=== PATIENT | female | born 1960 | race Caucasian/White ===

== ENCOUNTER 2017-01-29 12:14 | Emergency (ER) | payer BC ==
[~2017-01-29] VITALS: Ht 160 cm; Wt 59.0 kg
[2017-01-29 12:30] VITALS: TEMP 36.6; Ht 160 cm; Wt 59.0 kg
[2017-01-29] MEDS ORDERED: LISI-461 PO (12:47)
[2017-01-29] MEDS ORDERED: SODIUM CHLORIDE 0.9% 1000ML 500 ML IV ONE (13:01)
[2017-01-29] MEDS ORDERED: ONDANSETRON INJ 2 MG/ML 2 ML VIAL IV STA (13:12)
[2017-01-29] MEDS ORDERED: KETOROLAC TROMETHAMINE 30 MG/ML VIAL IV STA (13:12)
[2017-01-29] MEDS ORDERED: MoRPHine SULFATE 10 MG/ML CARP/VIAL IV STA (13:12)
[2017-01-29] MEDS ORDERED: SODIUM CHLORIDE 0.9% 1000ML 2,000 ML IV STA (13:15)
[2017-01-29 13:22] LABS: HEMATOCRIT 40.8 % (37-47); MEAN CELL VOLUME 77.7 fL (80-100); MEAN CORPUSCULAR HEMOGLOBIN 26.3 pg (25-34); MEAN CORPUSCULAR HGB CONC 33.8 g/dl (32-36); MEAN PLATELET VOLUME 9.4 fL (7.4-10.4); PLATELET COUNT 224 K/uL (130-400); RED BLOOD COUNT 5.25 M/uL (4.2-5.4); WHITE BLOOD COUNT 8.84 K/uL (4.8-10.8)
[2017-01-29 13:39] LABS: BUN/CREATININE RATIO 21.1 (10-20); CALCIUM 9.8 mg/dl (8.5-10.1); CREATININE 1.2 mg/dl (0.60-1.20); POTASSIUM 3.9 mmol/L (3.5-5.1)
--- NOTE | 2017-01-29 14:02 | DIAGNOSTIC IMAGING REPORT ---
ABDOMEN AND PELVIS CT WITHOUT CONTRAST CT DOSE: 672.52 mGycm HISTORY: Flank pain LEFT FLANK PAIN TECHNIQUE: Multiaxial CT images of the abdomen and pelvis were performed without the use of intravenous and oral contrast according to the standard department stone protocol. COMPARISON STUDY: None. FINDINGS: The lung bases are clear. The unenhanced liver, gallbladder, spleen, pancreas, and adrenal glands are unremarkable. Mild left renal hydronephrosis. 4 mm partially obstructing calculus mid left ureter. No additional renal calcifications. Bladder is midline. Multiple pelvic vascular calcifications. Multiple fluid-filled loops of bowel suggesting nonobstructive ileus. IMPRESSION: 4 mm partially obstructing calculus mid left ureter. 2. Mild left hydroureteronephrosis. 3. Mild reactive ileus. Electronically signed by: Bret Dias M.D. 01/29/2017 2:01 PM Dictated Date/Time: 01/29/2017 1:55 PM
[2017-01-29] MEDS ORDERED: TAMSULOSIN HCL 0.4 MG CAP PO ONE (15:15)
[2017-01-29 16:24] LABS: URINE APPEARANCE CLEAR (CLEAR); URINE BILIRUBIN NEG (NEG); URINE COLOR YELLOW; URINE EPITHELIAL CELL AUTO 0-5 /lpf (0-5); URINE NITRITE NEG (NEG); URINE SPECIFIC GRAVITY 1.006 (1.000-1.030); UROBILINOGEN NEG (NEG)
[2017-01-29 16:27] LABS: MANUAL MICROSCOPIC REQUIRED? NO; REVIEW REQ? NO
[2017-01-29] MEDS ORDERED: MoRPHine SULFATE 4 MG/ML 1 ML CARP\\VIAL IV STA (16:45)
[2017-01-29] MEDS ORDERED: ONDA4TAB10 SL (16:48)
[2017-01-29] MEDS ORDERED: HYDR-5688 PO (16:48)
[2017-01-29] MEDS ORDERED: TAMS0.4C38 PO (16:48)
--- NOTE | 2017-01-29 16:49 | EMERGENCY ROOM VISIT NOTE ---
ED Visit Note First contact with patient: 13:09 CHIEF COMPLAINT: Left flank pain 3 hours HISTORY OF PRESENT ILLNESS: Patient is a generally healthy 56-year-old white female who presents emergency department for evaluation of left lower quadrant pain radiating to the left low back with associated nausea and vomiting that began acutely around 3 hours ago. Patient states that she has been feeling well and was in her usual state of health prior to the onset of her symptoms about 3 hours ago. 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 She reports that she felt fine during work, came home this morning and ate breakfast. She states that around 10:30 (2 hours prior to arrival) she noticed a dull, aching pain in the left lower quadrant. She states that she thought it could be gas so she had a bowel movement which was normal and did not help to alleviate her pain. The pain steadily worsened and began to rapidly around to the left low back. She reports associated nausea and vomiting, she reports multiple episodes, since the pain began. She has urinated and denies any dysuria, frequency, urgency or hematuria. She is postmenopausal and status post tubal ligation. She has never had any abdominal surgeries. She denies a history of kidney stones. She rates her pain a 10/10 presently. REVIEW OF SYSTEMS: Review of systems as per HPI. All other systems reviewed were negative. 10 systems reviewed. PMH: Electronic medical records are reviewed and summarized as above/below. See Problem List. SOCIAL HISTORY: Patient lives at home. 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 She does not smoke. PHYSICAL EXAM: Vital Signs: Reviewed Nurse's notes. CONSTITUTIONAL: Patient is an uncomfortable, slightly tearful 56-year-old white female who was awake and alert and in obvious distress due to her stated complaint. EYES: Pupils equal, round, reactive to light and accommodation. EOMs intact without nystagmus. Sclera are anicteric. ENT: Tympanic membranes intact, with normal landmarks. External canals are clear. Oral and nasopharynx are clear. Mucous membranes are moist, no lesions , tongue and gums appear normal. CARDIOVASCULAR: Regular rate and rhythm, with normal S1 and S2, no murmur or gallop or rub is heard. No carotid bruits auscultated. No JVD. Peripheral pulses easily palpable. RESPIRATORY: Breath sounds equal and clear to auscultation without wheezes, rales, or rhonchi heard. Full and equal chest expansion without accessory muscle use or retractions. ABDOMEN: Bowel sounds are present. Abdomen is soft, nondistended, tender to palpation in the left midabdomen, no guarding, rebound or rigidity. INTEGUMENTARY: No lesions or rash, normal skin turgor. LYMPH: No lymphadenopathy. EMERGENCY DEPARTMENT COURSE: The patient was seen and evaluated as above. IV access was obtained and she was hydrated with normal saline solution. She was medicated with morphine 6 mg, Toradol 30 mg and Zofran 4 mg IV. CBC, BMP and urinalysis were ordered. Given the patient's abrupt onset of colicky left flank pain with associated nausea and vomiting, I did order CT scan of the abdomen and pelvis without contrast. She had a 4 mm partially obstructing calculus in the left mid ureter with resulting hydronephrosis. Patient's laboratory studies noted a normal white count. She is not anemic. Electrolytes are within normal limits. BUN and creatinine 25 and 1.2. Urinalysis noted hematuria only without any other indicators for infection. The patient was medicated with additional morphine 4 mg IV prior to discharge. She was also given Flomax 0.4 mg orally. She was issued a urine strainer. All laboratory and diagnostic imaging studies were reviewed with the patient. Supportive care measures were discussed. She reported good pain relief with the IV medications. She will be prescribed a short course of oral Flomax, and was given Zofran and [place] to use for pain and nausea. The patient rated her discomfort a 5/10 at discharge. Differential diagnoses entertained included UTI, pyelonephritis, renal colic, diverticulitis, bowel obstruction, perforation, abscess, ovarian cyst, ovarian torsion, ectopic , mass or malignancy, infectious versus inflammatory colitis, food borne illness, among others. ABDOMEN AND PELVIS CT WITHOUT CONTRAST CT DOSE: 672.52 mGycm HISTORY: Flank pain LEFT FLANK PAIN TECHNIQUE: Multiaxial CT images of the abdomen and pelvis were performed without the use of intravenous and oral contrast according to the standard department stone protocol. COMPARISON STUDY: None. FINDINGS: The lung bases are clear. The unenhanced liver, gallbladder, spleen, pancreas, and adrenal glands are unremarkable. Mild left renal hydronephrosis. 4 mm partially obstructing calculus mid left ureter. No additional renal calcifications. Bladder is midline. Multiple pelvic vascular calcifications. Multiple fluid-filled loops of bowel suggesting nonobstructive ileus. IMPRESSION: 4 mm partially obstructing calculus mid left ureter. 2. Mild left hydroureteronephrosis. 3. Mild reactive ileus. Problem List Medical Problems: (1) Hypertension Status: Chronic Surgical Problems: (1) Status post tubal ligation Status: Resolved Current/Historical Medications Scheduled Lisinopril (Lisinopril), 10 MG PO QAM Tamsulosin Hcl (Flomax), 0.4 MG PO DAILY Scheduled PRN Hydrocodone/Acetaminophen 5MG/325MG ([place] 5MG/325MG), 1-2 TABLETS PO Q4 PRN for Pain Ondasetron Odt (Zofran Odt), 4 MG SL Q6H PRN for Nausea or Vomiting Allergies Coded Allergies: No Known Allergies (Unverified , 01/29/17) Vital Signs Date Time Temp Pulse Resp B/P Pulse Ox O2 Delivery O2 Flow Rate FiO2 01/29/17 17:08 75 18 119/85 96 Room Air 01/29/17 16:05 84 16 138/79 94 Room Air 01/29/17 13:50 87 20 131/95 95 Room Air 01/29/17 12:30 36.6 84 20 152/105 97 Room Air Laboratory Results 01/29/17 13:13 01/29/17 13:13 Test 01/29/17 13:13 01/29/17 15:08 Red Blood Count 5.25 M/uL (4.2-5.4) Mean Corpuscular Volume 77.7 fL (80-100) Mean Corpuscular Hemoglobin 26.3 pg (25-34) Mean Corpuscular Hemoglobin Concent 33.8 g/dl (32-36) RDW Standard Deviation 37.3 fL (36.4-46.3) RDW Coefficient of Variation 13.3 % (11.5-14.5) Mean Platelet Volume 9.4 fL (7.4-10.4) Anion Gap 9.0 mmol/L (3-11) Est Creatinine Clear Calc Drug Dose 43.8 ml/min Estimated GFR () 58.9 Estimated GFR (Non- 50.8 BUN/Creatinine Ratio 21.1 (10-20) Calcium Level 9.8 mg/dl (8.5-10.1) Urine Color YELLOW Urine Appearance CLEAR (CLEAR) Urine pH 5.0 (4.5-7.5) Urine Specific [place] 1.006 (1.000-1.030) Urine Protein NEG (NEG) Urine Glucose (UA) NEG (NEG) Urine Ketones NEG (NEG) Urine Occult Blood 3+ (NEG) Urine Nitrite NEG (NEG) Urine Bilirubin NEG (NEG) Urine Urobilinogen NEG (NEG) Urine Leukocyte Esterase NEG (NEG) Urine WBC (Auto) 1-5 /hpf (0-5) Urine RBC (Auto) >30 /hpf (0-4) Urine Hyaline Casts (Auto) 0 /lpf (0-5) Urine Epithelial Cells (Auto) 0-5 /lpf (0-5) Urine Bacteria (Auto) NEG (NEG) Medications Administered Medications (Trade) Dose Ordered Sig/Keshawn Route Start Time Stop Time Status Last Admin Dose Admin Sodium Chloride (Nss 1000ml) 500 ml @ 999 mls/hr Q31M ONCE IV 01/29/17 13:01 01/29/17 13:31 DC 01/29/17 13:01 999 MLS/HR Morphine Sulfate (MoRPHine SULFATE INJ) 6 mg NOW STAT IV 01/29/17 13:12 01/29/17 13:14 DC 01/29/17 13:24 6 MG Ketorolac Tromethamine (Toradol Inj) 30 mg NOW STAT IV 01/29/17 13:12 01/29/17 13:14 DC 01/29/17 13:23 30 MG Ondansetron HCl 4 mg 4 mg NOW STAT IV 01/29/17 13:12 01/29/17 13:14 DC 01/29/17 13:23 4 MG Sodium Chloride (Nss 1000ml) 2,000 ml @ 999 mls/hr Q2H1M STAT IV 01/29/17 13:15 01/29/17 15:15 DC 01/29/17 13:24 999 MLS/HR Tamsulosin HCl (Flomax Cap) 0.4 mg NOW ONCE PO 01/29/17 15:15 01/29/17 15:16 DC 01/29/17 15:09 0.4 MG Morphine Sulfate (MoRPHine SULFATE INJ) 4 mg NOW STAT IV 01/29/17 16:45 01/29/17 16:46 DC 01/29/17 17:10 4 MG Departure Information Impression Primary Impression: Left ureteral calculus Prescriptions Ondasetron Odt (ZOFRAN ODT) 4 Mg Tab 4 MG SL Q6H Y for Nausea or Vomiting, #20 TAB Prov: Jenna Edouard PA 01/29/17 Hydrocodone/Acetaminophen 5MG/325MG ([place] 5MG/325MG) Tab 1-2 TABLETS PO Q4 Y for Pain, #20 TAB For Initial Treatment Prov: Jenna Edouard PA 01/29/17 Tamsulosin Hcl (FLOMAX) 0.4 Mg Cap 0.4 MG PO DAILY, #14 CAP Prov: Jenna Edouard PA 01/29/17 Referrals No Doctor, Assigned (PCP) Patient Instructions [facility] Additional Instructions DO NOT drive, drink alcohol, operate machinery, or perform dangerous activities today. You were given medications in the ER that can affect your ability to safely function or operate a vehicle. Flomax 0.4 m tablet daily. Hydrocodone/Acetaminophen ([place]) 5/325 mg: Take 1-2 pills every four hours for breakthrough pain. Avoid alcohol, operating machinery or dangerous equipment, working on ladders or roofs, DRIVING, or situations where being under the influence may be dangerous. It is recommended to use an [id number] stool softener such as Colace, 100mg twice daily while taking this medication to avoid constipation. Zofran(odansetron) tablets 4mg: Take one and allow it to dissolve in your mouth every four to six hours as needed for nausea or vomiting. Ibuprofen(Motrin, Advil) may be used for fever or pain. Use 600mg every six hours as needed. Take with food. Avoid using more than 2400mg in a 24 hour period. Do not use 2400mg per day for more than three consecutive days without physician direction. Prolonged inappropriate use can lead to stomach upset or ulcers. This medication can be taken if you need to drive, work, or perform activities which may be dangerous when taking narcotic pain medication. Strain your urine and collect all the stones or debris for the urologists. Rest and avoid strenuous activity until your stone passes and symptoms resolve. Drink plenty of fluids. Continue current medications. Return to the ER for worsening abdominal or back pain, vomiting, fevers, passing out, or as needed. Follow up with your primary care provider this week for recheck of your present symptoms.
[2017-01-29 17:08] VITALS: BP 119/85; PULSE 75; O2SAT 96
[2017-01-31] MEDS ORDERED: IBUP-103 PO (20:39)
[2017-02-03] MEDS ORDERED: TAMS0.4C38 PO ×2 (16:08→18:26)
[2017-02-03] MEDS ORDERED: OXYC1TAB3 PO (16:08)
[2017-02-03] MEDS ORDERED: ONDA4TAB46 PO (16:08)
[2017-02-03] MEDS ORDERED: omega red PO (16:08)
[2017-02-03] MEDS ORDERED: albuterol inhaler INH (16:08)
[2017-02-03] MEDS ORDERED: BIOT1CAP8 PO (16:08)
[2017-02-03] MEDS ORDERED: MULT-506 PO (16:08)
[2017-02-13] MEDS ORDERED: OMEG10007 PO (15:47)
[2017-02-13] MEDS ORDERED: TAMS0.4C38 PO (15:49)
[2017-02-13] MEDS ORDERED: VNTHFA/IN INH (15:50)
[2017-02-19] MEDS ORDERED: TAMS0.4C38 PO (12:19)
[2017-02-19] MEDS ORDERED: OXYC-57 PO (12:19)
[2017-02-19] MEDS ORDERED: PHEN-775 PO (12:19)
[2017-02-19] MEDS ORDERED: NITR1CAP16 PO (12:19)
== END 2017-01-29 17:28 | disposition home or self-care (01) ==
LOC: C.EDB 12:17 → C.EDC 17:28
DX: N20.1 Calculus of ureter (principal); Z98.51 Tubal ligation status; I10 Essential (primary) hypertension; Z79.899 Other long term (current) drug therapy

== ENCOUNTER 2017-01-31 19:15 | Emergency (ER) | payer BC ==
[~2017-01-31] VITALS: Ht 160 cm; Wt 59.8 kg
[~2017-01-31 19:15] MED LIST: HYDR-5688 PO; LISI-461 PO; ONDA4TAB10 SL; TAMS0.4C38 PO
[2017-01-31 19:19] VITALS: Ht 160 cm; Wt 59.8 kg
[2017-01-31] MEDS ORDERED: MoRPHine SULFATE 10 MG/ML CARP/VIAL IV STA (20:01)
[2017-01-31] MEDS ORDERED: SODIUM CHLORIDE 0.9% 1000ML 1,000 ML IV STA (20:01)
[2017-01-31] MEDS ORDERED: ONDANSETRON INJ 2 MG/ML 2 ML VIAL IV STA (20:01)
[2017-01-31 20:03] LABS: BASO % 0.1 %; BASO ABS # 0.01 K/uL (0-0.2); COMPLETE YES; EOS % 1.9 %; HEMATOCRIT 36.8 % (37-47); IG% 0.1 %; LYMPH % 10.4 %; LYMPH ABS # 0.81 K/uL (1.2-3.4); MEAN CELL VOLUME 79.8 fL (80-100); MEAN CORPUSCULAR HEMOGLOBIN 26.2 pg (25-34); MEAN CORPUSCULAR HGB CONC 32.9 g/dl (32-36); MEAN PLATELET VOLUME 9.2 fL (7.4-10.4); MONO % 7.8 %; NEUT % 79.7 %; PLATELET COUNT 167 K/uL (130-400); RED BLOOD COUNT 4.61 M/uL (4.2-5.4); WHITE BLOOD COUNT 7.78 K/uL (4.8-10.8)
[2017-01-31 20:24] LABS: URINE APPEARANCE CLOUDY (CLEAR); URINE BILIRUBIN NEG (NEG); URINE COLOR DK YELLOW; URINE EPITHELIAL CELL AUTO 20-30 /lpf (0-5); URINE NITRITE NEG (NEG); URINE SPECIFIC GRAVITY 1.033 (1.000-1.030); UROBILINOGEN NEG (NEG); ZZUR CULT IF INDIC CLEAN CATCH NO
[2017-01-31 20:27] LABS: MANUAL MICROSCOPIC REQUIRED? NO; REVIEW REQ? NO
[2017-01-31 20:38] LABS: PREG INTERNAL NEGATIVE QC NEG CLEAR BACKGROUND; PREG INTERNAL POSITIVE QC POS CONTROL LINE
[2017-01-31] MEDS ORDERED: IBUP-103 PO ×2 (20:39)
[2017-01-31 21:08] LABS: BUN/CREATININE RATIO 8.8 (10-20); CALCIUM 8.7 mg/dl (8.5-10.1); CREATININE 1.3 mg/dl (0.60-1.20); POTASSIUM 3.7 mmol/L (3.5-5.1)
--- NOTE | 2017-01-31 21:15 | DIAGNOSTIC IMAGING REPORT ---
KUB HISTORY: stone w/ left flank pain COMPARISON: Abdomen and pelvis CT 01/29/2017. FINDINGS: The bowel gas pattern is unremarkable. There are no dilated loops of small bowel to suggest an obstruction. There are no right renal calculi. The patient's left renal calculi are not well visualized due to the overlying bowel. The patient's known left ureteral stone may also be obscured by the overlying bowel. Multiple nonspecific round calcifications in the deep pelvis favor phleboliths. No pneumoperitoneum or pneumatosis. IMPRESSION: 1. The patient's known left ureteral stone is not clearly identified and is likely obscured by overlying bowel. 2. The patient's known left renal calculi are also obscured by overlying bowel. 3. Multiple round calcifications within the pelvis are nonspecific but favor phleboliths. Electronically signed by: Bandar Trevino M.D. 01/31/2017 9:14 PM Dictated Date/Time: 01/31/2017 9:11 PM
--- NOTE | 2017-01-31 21:36 | DIAGNOSTIC IMAGING REPORT ---
RENAL ULTRASOUND HISTORY: Left-sided abdominal pain. stone w flank pain COMPARISON: Abdomen and pelvis CT 01/29/2017. FINDINGS: Right kidney: 9.3 cm. No hydronephrosis. Normal corticomedullary differentiation and cortical thickness. Left kidney: 10.6 cm. Mild hydronephrosis. Normal corticomedullary differentiation and cortical thickness. Bladder: No bladder wall thickening. Bilateral ureteral jets are identified. IMPRESSION: 1. Normal right kidney. 2. Mild left hydronephrosis, unchanged. 3. The bilateral ureteral jets are identified. Therefore, this favors a partially obstructing stone. Electronically signed by: Bandar Trevino M.D. 01/31/2017 9:34 PM Dictated Date/Time: 01/31/2017 9:33 PM
[2017-01-31] MEDS ORDERED: HYDROmorphone INJ 1 MG/ML SYR IV STA (21:46)
[2017-01-31] MEDS ORDERED: KETOROLAC TROMETHAMINE 30 MG/ML VIAL IV STA (21:46)
[2017-01-31] MEDS ORDERED: OXYC1TAB3 PO (23:05)
[2017-01-31 23:15] VITALS: BP 103/70; PULSE 70; TEMP 36.7; O2SAT 100
[2017-01-31] MEDS ORDERED: OXYCODONE IR HOME PACK PO ONE (23:15)
--- NOTE | 2017-02-01 00:28 | EMERGENCY ROOM VISIT NOTE ---
History Report prepared by Cristhian: Alma Singh Under the Supervision of: Dr. Jann Santana D.O. First contact with patient: 19:42 Chief Complaint: KIDNEY STONE Stated Complaint: KIDNEY STONE,NAUSEA,PAIN,VOMITING History of Present Illness The patient is a 56 year old female who presents to the Emergency Room with complaints of persistent left sided back pain that started 2 days ago. The patient states that she developed the pain 2 days ago while she was eating breakfast. The pain started in her left flank then moved into the left side of her back. The patient was seen in the ED 2 days ago and diagnosed with a kidney stone. She states that the nausea and vomiting have not subsided even though she is taking all of her medications as prescribed. The patient states that she felt well yesterday, but she started taking the pain medications last night and has been experiencing nausea and vomiting since then. She denies fevers, cough, and rhinorrhea. The patient adds that this is her first kidney stone. Source of History: patient Onset: 2 days ago Position: back (left sided) Timing: other (persistent) Associated Symptoms: + nausea, + vomiting, No cough, No fevers Note: no rhinorrhea Review of Systems See HPI for pertinent positives & negatives. A total of 10 systems reviewed and were otherwise negative. Past Medical & Surgical Medical Problems: (1) Hypertension Surgical Problems: (1) Status post tubal ligation Family History Cancer Diabetes mellitus Heart disease Hypertension Lung disease Social History Smoking Status: Never Smoker Smokeless Tobacco Use: No Alcohol Use: occasionally Marital Status: Housing Status: lives with family Occupation Status: employed Current/Historical Medications Scheduled Lisinopril (Lisinopril), 10 MG PO QAM Tamsulosin Hcl (Flomax), 0.4 MG PO DAILY Scheduled PRN Hydrocodone/Acetaminophen 5MG/325MG ([place] 5MG/325MG), 1-2 TABLETS PO Q4 PRN for Pain Ondasetron Odt (Zofran Odt), 4 MG SL Q6H PRN for Nausea or Vomiting Oxycodone Immediate Rel Tab (Roxicodone Ir), 1-2 TAB PO Q4H PRN for Severe Pain Miscellaneous Medications Ibuprofen Tab (Advil), 400 MG PO Allergies Coded Allergies: No Known Allergies (Unverified , 01/31/17) Physical Exam Vital Signs Date Time Temp Pulse Resp B/P Pulse Ox O2 Delivery O2 Flow Rate FiO2 01/31/17 23:15 36.7 70 16 103/70 100 01/31/17 22:03 65 16 123/77 98 Room Air 01/31/17 21:38 69 18 148/88 98 Room Air 01/31/17 19:19 36.7 84 22 126/97 97 Room Air Physical Exam GENERAL: alert, sitting up in bed, well appearing, well nourished, mild distress EYE EXAM: normal conjunctiva OROPHARYNX: no exudate, no erythema, lips, buccal mucosa, and tongue normal and mucous membranes are moist NECK: supple, no nuchal rigidity, no adenopathy, non-tender LUNGS: Clear to auscultation. Normal chest wall mechanics HEART: no murmurs, S1 normal and S2 normal ABDOMEN: abdomen soft, non-tender, normo-active bowel sounds, no masses, no rebound or guarding. BACK: Back is symmetrical on inspection and there is no deformity, no midline tenderness, no CVA tenderness. SKIN: no rashes and no bruising UPPER EXTREMITIES: upper extremities are grossly normal. LOWER EXTREMITIES: No pitting edema. NEURO EXAM: Normal sensorium, cranial nerves II-XII grossly intact, normal speech, no gross weakness of arms, no gross weakness of legs. Medical Decision & Procedures ER Provider Diagnostic Interpretation: Xray results per the radiologist and my interpretation. Other results have been interpreted by the radiologist and reviewed by me. KUB IMPRESSION: 1. The patient's known left ureteral stone is not clearly identified and is likely obscured by overlying bowel. 2. The patient's known left renal calculi are also obscured by overlying bowel. 3. Multiple round calcifications within the pelvis are nonspecific but favor phleboliths. Electronically signed by: Bandar Trevino M.D. 01/31/2017 9:14 PM Dictated Date/Time: 01/31/2017 9:11 PM RENAL ULTRASOUND IMPRESSION: 1. Normal right kidney. 2. Mild left hydronephrosis, unchanged. 3. The bilateral ureteral jets are identified. Therefore, this favors a partially obstructing stone. Electronically signed by: Bandar Trevino M.D. 01/31/2017 9:34 PM Dictated Date/Time: 01/31/2017 9:33 PM Laboratory Results 01/31/17 19:50 Red Blood Count 4.61, Mean Corpuscular Volume 79.8, Mean Corpuscular Hemoglobin 26.2, Mean Corpuscular Hemoglobin Concent 32.9, Mean Platelet Volume 9.2, Neutrophils (%) (Auto) 79.7, Lymphocytes (%) (Auto) 10.4, Monocytes (%) (Auto) 7.8, Eosinophils (%) (Auto) 1.9, Basophils (%) (Auto) 0.1, Neutrophils # (Auto) 6.19, Lymphocytes # (Auto) 0.81, Monocytes # (Auto) 0.61, Eosinophils # (Auto) 0.15, Basophils # (Auto) 0.01 01/31/17 19:50 Test 01/31/17 19:50 White Blood Count 7.78 K/uL (4.8-10.8) Red Blood Count 4.61 M/uL (4.2-5.4) Hemoglobin 12.1 g/dL (12.0-16.0) Hematocrit 36.8 % (37-47) Mean Corpuscular Volume 79.8 fL (80-100) Mean Corpuscular Hemoglobin 26.2 pg (25-34) Mean Corpuscular Hemoglobin Concent 32.9 g/dl (32-36) Platelet Count 167 K/uL (130-400) Mean Platelet Volume 9.2 fL (7.4-10.4) Neutrophils (%) (Auto) 79.7 % Lymphocytes (%) (Auto) 10.4 % Monocytes (%) (Auto) 7.8 % Eosinophils (%) (Auto) 1.9 % Basophils (%) (Auto) 0.1 % Neutrophils # (Auto) 6.19 K/uL (1.4-6.5) Lymphocytes # (Auto) 0.81 K/uL (1.2-3.4) Monocytes # (Auto) 0.61 K/uL (0.11-0.59) Eosinophils # (Auto) 0.15 K/uL (0-0.5) Basophils # (Auto) 0.01 K/uL (0-0.2) RDW Standard Deviation 39.5 fL (36.4-46.3) RDW Coefficient of Variation 13.7 % (11.5-14.5) Immature Granulocyte % (Auto) 0.1 % Immature Granulocyte # (Auto) 0.01 K/uL (0.00-0.02) Urine Color DK YELLOW Urine Appearance CLOUDY (CLEAR) Urine pH 5.0 (4.5-7.5) Urine Specific [place] 1.033 (1.000-1.030) Urine Protein TRACE (NEG) Urine Glucose (UA) NEG (NEG) Urine Ketones NEG (NEG) Urine Occult Blood 3+ (NEG) Urine Nitrite NEG (NEG) Urine Bilirubin NEG (NEG) Urine Urobilinogen NEG (NEG) Urine Leukocyte Esterase NEG (NEG) Urine WBC (Auto) 1-5 /hpf (0-5) Urine RBC (Auto) 10-30 /hpf (0-4) Urine Hyaline Casts (Auto) 1-5 /lpf (0-5) Urine Epithelial Cells (Auto) 20-30 /lpf (0-5) Urine Bacteria (Auto) NEG (NEG) Urine Test NEG (NEG) Anion Gap 10.0 mmol/L (3-11) Est Creatinine Clear Calc Drug Dose 40.4 ml/min Estimated GFR () 53.5 Estimated GFR (Non- 46.1 BUN/Creatinine Ratio 8.8 (10-20) Calcium Level 8.7 mg/dl (8.5-10.1) Total Bilirubin 0.6 mg/dl (0.2-1) Direct Bilirubin 0.1 mg/dl (0-0.2) Aspartate Amino Transf (AST/SGOT) 24 U/L (15-37) Alanine Aminotransferase (ALT/SGPT) 29 U/L (12-78) Alkaline Phosphatase 48 U/L (45-117) Total Protein 6.9 gm/dl (6.4-8.2) Albumin 3.3 gm/dl (3.4-5.0) Lipase 110 U/L (73-393) Laboratory results per my review. Medications Administered Medications (Trade) Dose Ordered Sig/Keshawn Route Start Time Stop Time Status Last Admin Dose Admin Sodium Chloride (Nss 1000ml) 1,000 ml @ 999 mls/hr Q1H1M STAT IV 01/31/17 20:01 01/31/17 21:01 DC 01/31/17 20:15 999 MLS/HR Ondansetron HCl (Zofran Inj) 4 mg NOW STAT IV 01/31/17 20:01 01/31/17 20:03 DC 01/31/17 20:15 4 MG Morphine Sulfate (MoRPHine SULFATE INJ) 6 mg NOW STAT IV 01/31/17 20:01 01/31/17 20:03 DC 01/31/17 20:14 6 MG Hydromorphone HCl (Dilaudid Inj) 1 mg NOW STAT IV 01/31/17 21:46 01/31/17 21:47 DC 01/31/17 21:53 1 MG Ketorolac Tromethamine (Toradol Inj) 30 mg NOW STAT IV 01/31/17 21:46 01/31/17 21:47 DC 01/31/17 21:52 30 MG Oxycodone HCl (Roxicodone Immediate Rel 5MG Home Pack) 1 homepack UD ONCE PO 01/31/17 23:15 01/31/17 23:16 DC 01/31/17 23:12 1 HOMEPACK ED Course ED COURSE: Vital signs were reviewed and showed normal. The patients medical record was reviewed The above diagnostic studies were performed and reviewed. ED treatments and interventions as stated above. 1953: The patient was evaluated in room B7. A complete history and physical examination was performed. 2000: Ordered Morphine Sulfate 6 mg IV, Zofran Inj 4 mg IV, Sodium Chloride 1000 ml @ 999 mls/hr IV 2144: I reassessed the patient. She is still experiencing some pain and requested more pain medicine. 2145: Ordered Dilaudid 1 mg IV 2300: Upon reevaluation, the patient is doing well. I discussed my findings with the patient and she understands and agrees with the treatment plan. Based on the patients age, coexisting illnesses, exam and lab findings the decision to treat as an outpatient was made. The patient remained stable while under my care. The patient appeared well at the time of discharge. 5: Ordered Oxycodone HCl 1 homepack PO Medical Decision Differential diagnoses includes but is not limited to gastritis, peptic ulcer disease, GERD, gallbladder disease, pancreatitis, small bowel obstruction, acute coronary syndrome, pericarditis, ischemic bowel, irritable bowel disease, irritable bowel syndrome, appendicitis, diverticulitis, malignancy, hernia, urinary tract infection, torsion, /ectopic , perforation, trauma, infectious. Patient is a 56-year-old female who presents the ER for renal colic. She seen here earlier this week and diagnosed with renal stone on Wednesday. It is 4 mm in diameter. Patient has no fevers. She notes the pain has worsened and she is having nausea. Labs show no significant leukocytosis or anemia. BMP along with LFTs, bilirubin and lipase was unremarkable. UA shows no signs of infection. Urine was negative. KUB does not show the stone. Renal sound shows bilateral ureter all jets. Patient was given IV morphine and Dilaudid with complete resolution of her pain. She is discharged to continue her Zofran, Flomax and was instructed to stop her current contacts and start taking OxyIR heard I gave her prescription for which she can take 1-2 tabs every 4 hours as needed for pain. Patient was comfortable with this and she was instructed to follow up with urology as previously referred. Discussed with Pt concerning signs and symptoms to watch out for. Pt was instructed to follow up with their PCP and discussed with the patient their option to return to the ED at anytime for persistent or worsening symptoms. The appropriate anticipatory guidance and out-patient management, including indications for return to the emergency department, were explained at length to the patient and understood. Impression Primary Impression: Renal colic Additional Impression: Kidney stone Scribe Attestation The scribe's documentation has been prepared under my direction and personally reviewed by me in its entirety. I confirm that the note above accurately reflects all work, treatment, procedures, and medical decision making performed by me. Departure Information Dispostion Home / Self-Care Prescriptions Oxycodone Immediate Rel Tab (ROXICODONE IR) 5 Mg Tab 1-2 TAB PO Q4H Y for Severe Pain, #24 TAB Prov: Jann Santana, 01/31/17 Referrals Rah Snowden III, M.D. (PCP) Forms HOME CARE DOCUMENTATION FORM, IMPORTANT VISIT INFORMATION Patient Instructions Kidney Stones - [facility], [facility] Additional Instructions Please follow up with your primary care doctor with in the next 24 hours. Any worsening of your symptoms, please return to the ED immediately. This includes fevers greater than 1.4, persistent nausea vomiting, worsening pain, passing out , or any other concerning signs or symptoms from your standpoint. You were given medications during this visit that will inhibit your ability to drive, operate machinery and work. Please do NOT drive, operate machinery or work for the next 12hrs. You were also given a prescription for a narcotic/ OxyIR. While taking this medication you should also not drive, operate machinery and or work. You should also not take this in combination with hydrocodone which you were previously prescribed. Problem Qualifiers
[2017-02-03] MEDS ORDERED: albuterol inhaler INH ×2 (16:08)
[2017-02-03] MEDS ORDERED: MULT-506 PO ×2 (16:08)
[2017-02-03] MEDS ORDERED: omega red PO ×2 (16:08)
[2017-02-03] MEDS ORDERED: OXYC1TAB3 PO ×2 (16:08)
[2017-02-03] MEDS ORDERED: TAMS0.4C38 PO ×3 (16:08→18:26)
[2017-02-03] MEDS ORDERED: ONDA4TAB46 PO ×2 (16:08)
[2017-02-03] MEDS ORDERED: BIOT1CAP8 PO ×2 (16:08)
[2017-02-13] MEDS ORDERED: OMEG10007 PO (15:47)
[2017-02-13] MEDS ORDERED: TAMS0.4C38 PO (15:49)
[2017-02-13] MEDS ORDERED: VNTHFA/IN INH (15:50)
[2017-02-19] MEDS ORDERED: PHEN-775 PO (12:19)
[2017-02-19] MEDS ORDERED: TAMS0.4C38 PO (12:19)
[2017-02-19] MEDS ORDERED: NITR1CAP16 PO (12:19)
[2017-02-19] MEDS ORDERED: OXYC-57 PO (12:19)
== END 2017-01-31 23:16 | disposition home or self-care (01) ==
LOC: C.EDB 19:16
DX: N23 Unspecified renal colic (principal); N20.0 Calculus of kidney; I10 Essential (primary) hypertension; Z98.51 Tubal ligation status; Z83.3 Family history of diabetes mellitus; Z82.49 Family history of ischemic heart disease and other diseases of the circulatory system; Z79.899 Other long term (current) drug therapy

== ENCOUNTER → 2017-02-03 | Day surgery (SDC) | payer BC ==
[~2017-02-03] VITALS: Ht 160 cm; Wt 58.7 kg
[~2017-02-03] MED LIST changes: +ATROPINE SULFATE 0.1 MG/ML 5ML SYR IV PRN; +BELLADONNA/OPIUM SUPP 60 MG SUPP PR ONE; +BIOT1CAP8 PO; +CEFAZOLIN 2000 MG/60 ML D5W 60 ML IV SCH; +DEXAMETHASONE SOD INJ 4 MG/ML VIAL ONE; +EpHEDrine SULFATE INJ 50 MG/ML AMP IV PRN; +FENTANYL CITRATE INJ 50 MCG/1 ML 2 ML VIAL ONE; +HYDROmorphone INJ 1 MG/ML SYR IV PRN; +IBUP-103 PO; +KETOROLAC TROMETHAMINE 30 MG/ML VIAL ONE; +LIDOCAINE HCL 2% 2 ML VIAL (20MG/ML) ONE; +MIDAZOLAM HCL 1 MG/ML 2ML VIAL ONE; +MULT-506 PO; +NITR1CAP16 PO; +OMEG10007 PO; +ONDA4TAB46 PO; +ONDANSETRON INJ 2 MG/ML 2 ML VIAL IV PRN; +ONDANSETRON INJ 2 MG/ML 2 ML VIAL ONE; +OXYC-57 PO; +OXYC1TAB3 PO; +PHEN-775 PO; +PROPOFOL IV EMULSION 10 MG/ML 100 ML VIAL IV ONE; +PROPOFOL IV EMULSION 10 MG/ML 20 ML VIAL IV ONE; +SCOPOLAMINE 1.5 MG TDSY TD ONE; +VNTHFA/IN INH; +albuterol inhaler INH; +omega red PO
[2017-02-03 15:40] VITALS: BP 141/85; PULSE 65; TEMP 37; O2SAT 98; Ht 160 cm; Wt 58.7 kg
--- NOTE | 2017-02-03 17:26 | History and Physical ---
History Date of Service: Feb 03, 2017. Chief Complaint: left renal colic, obstructing ureteral stone Primary Care Physician: aRh Snowden III, M.D. Pt seen a urologist before?: No History of Present Illness Patient sent urgently by Dr Snowden for left renal colic. She has been to ER twice for pain. She has a 5mm left upper ureteral stone. HU are 800. She has pain continuously and has been nauseated and poor PO intake. This is her first stone. Imaging CT Laboratory Labs were reviewed and are within normal limits unless listed below. Labs are available in the chart and at [facility] Problem List Medical Problems: (1) Hypertension Status: Chronic (2) Left ureteral calculus Status: Acute (3) Renal colic Status: Acute Past History Past Medical History: anxiety, high cholesterol, kidney stones Past Surgical History: tubal ligation Family History Cancer Diabetes mellitus Heart disease Hypertension Lung disease no stones Social History Hx Tobacco Use In Past Year?: No Smoking: non-smoker Alcohol: socially Drug use: none Marital status: Occupation status: employed History of MDRO No Allergies Coded Allergies: No Known Allergies (Unverified , 02/03/17) Medications Home Medications: Home Meds and Scripts Medications Dose Route/Sig Max Daily Dose Days Date Category [albuterol inhaler] 2 Puffs INH UD 02/03/17 Reported Multivitamin (Multivitamins) Tab 1 Tab PO DAILY 02/03/17 Reported [omega red] 1 Tab PO DAILY 02/03/17 Reported Biotin Unknown Strength Cap Unknown Dose PO DAILY 02/03/17 Reported Zofran (Ondansetron HCl) 4 Mg Tab 4 Mg PO UD PRN 02/03/17 Reported Roxicodone Ir (Oxycodone HCl) 5 Mg Tab 1-2 Tab PO Q4H PRN 02/03/17 Reported Flomax (Tamsulosin Hcl) 0.4 Mg Cap 0.4 Mg PO DAILY 02/03/17 Reported Advil (Ibuprofen) 200 Mg Tab 400 Mg PO 01/31/17 Reported Lisinopril 10 Mg Tab 10 Mg PO QAM 01/29/17 Reported Inpatient Medications: Current Inpatient Medications Medications (Trade) Dose Ordered Sig/Keshawn Route Start Time Stop Time Status Last Admin Dose Admin Fentanyl Citrate (Fentanyl Inj) 25 mcg Q5M PRN IV 02/03/17 17:15 3/14/17 17:14 UNV Hydromorphone HCl (Dilaudid Inj) 0.25 mg Q5M PRN IV 02/03/17 17:15 02/04/17 17:14 UNV Ondansetron HCl (Zofran Inj) 4 mg ONE PRN IV 02/03/17 17:15 UNV Ephedrine Sulfate (EpHEDrine SULFATE INJ) 5 mg Q5M PRN IV 02/03/17 17:15 02/04/17 17:14 UNV Atropine Sulfate (Atropine Sulfate 0.1MG/Ml Inj) 0.5 mg Q1M PRN IV 02/03/17 17:15 02/04/17 17:14 UNV Review of Systems Review of Systems Constitutional: + frequent headaches, No chills, No fever Endocrine: + tired/sluggish, No excessive thirst, No too cold, No too hot Gastrointestinal: + abdominal pain, + constipation, + indigestion, + nausea, + vomiting Cardiovascular: No chest pain, No palpitations, No swelling ankles/feet Female : + kidney stones, No blood in urine, No frequent urination, No infections, No leaking urine, No painful urination, No urinary retention Physical Exam Vital Signs: Vital Signs Past 12 Hours Date Time Temp Pulse Resp B/P Pulse Ox O2 Delivery O2 Flow Rate FiO2 02/03/17 15:40 37 65 20 141/85 98 Room Air Physical Exam: General Appearance: WD/WN, + moderate distress, + thin Eyes: bilateral eyes normal inspection ENT: hearing grossly normal Neck: no adenopathy, no JVD Respiratory/Chest: lungs clear, normal breath sounds, no respiratory distress, no accessory muscle use Cardiovascular: regular rate, rhythm Extremities: non-tender, normal inspection, no pedal edema, no calf tenderness Neurologic/Psychiatric: alert, normal mood/affect, oriented x 3 Assessment & Plan Assessment & Plan left upper ureteral stone I offered further observation ureteroscopy with laser litho basket stone and stent or stent or eswl. She opts for ureteroscopy. She understands risk and benefit
--- NOTE | 2017-02-03 18:25 | [facility] Operative Report ---
Operative Report Operative Date Feb 03, 2017. Pre-Operative Diagnosis Left ureteral stone Post-Operative Diagnosis same plus small caliber distal ureter Procedure(s) Performed cysto, left stent placement Surgeon Dr. Miranda Dejesus Senior It Assistant Surgeon(s) None Estimated Blood Loss 4ml Findings radio-lucent ureteral stone, high grade obstruction Fluids 1000mL Specimens None as per surgeon Drains 6 fr 24 centimeters double J stent Anesthesia GET Complication(s) None Disposition Recovery Room / PACU Indications medium left upper ureteral stone failed OP MET. Still has severe pain today. We plan to remove stone. Description of Procedure Patient was given general GET and placed in lithotomy position. Her genitals were prepped and draped in sterile fashion. Time out held with team. I placed a 21 fr rigid cystoscope to bladder. The urethra is small and needed some calibration with the obturator alone to allow the 21 fr sheath to pass. The UOs are slit shape normal location. There is small amount thick gross blood coming from the left UO. I placed a road runner wire up left ureter to kidney easily. I placed the 5 fr open ended over it and it is tight both at the distal and upper ureter. I cannot see her stone anywhere along the course on fluoro. I placed a stiff wire in place of the road runner. I used a dual lumen to calibrate the UO but it will not pass into the distal ureter. I passed a second wire. I passed a semirigid ureteroscope over the second wire into the distal ureter. The lumen is too small to allow the scope to pass. I then removed ureteroscope and placed a 24 centimeter 6 Fr double J stent easily. There is brisk bloody efflux under pressure after placement. I left bladder empty and concluded case. I placed a belladonna and opium suppository for post-op pain. She transferred to recovery under my escort, in stable condition. Plan: Home today Pyridium for dysuria x 3 days flomax daily oral pain meds as needed repeat attempt at ureteroscopy in 2 weeks. ASA 3 clean contaminated case 1 minute 2 seconds fluoro ancef antibiotic academic services professional I attest to the content of the Intraoperative Record and any orders documented therein. Any exceptions are noted below.
--- NOTE | 2017-02-03 18:29 | Discharge Instructions ---
Discharge Instructions Date of Service Feb 03, 2017. Admission Reason for Admission: Obstructing ureteral stone Stone Discharge Discharge Diagnosis / Problem: left ureteral stone, narrow left distal ureter Discharge Goals Goal(s): Decrease discomfort, Improve function, Improve disease control Activity Recommendations Activity Limitations: resume your previous activity Lifting Limitations: none Exercise/Sports Limitations: none May Resume Sexual Activity: when tolerated Shower/Bathe: no limitations Driving or Machine Use: resume 1 day after discharge . Instructions / Follow-Up Instructions / Follow-Up We will retry the left ureteroscopy in 2 weeks need time for narrow distal ureter to stretch around the stent urine will be very blood for several days, sometimes the whole time the stent is in place may return to work in 48 hours Discharge Diet Recommended Diet: Regular Diet Fluid Restriction: None Procedures Procedures Performed: Cystoscopy and Left Ureteral Stent Placement Pending Studies Studies pending at discharge: no Medical Emergencies . Who to Call and When: Medical Emergencies: If at any time you feel your situation is an emergency, please call 911 immediately. . Non-Emergent Contact Non-Emergency issues call your: Urologist ([phone]) Call Non-Emergent contact if: temperature is above 100.5 . . "Provider Documentation" section prepared by Miranda Dejesus. VTE Core Measure Inpt VTE Proph given/why not?: SCD's [place] Drug Monitoring Program Search Results: patient reviewed within database
[2017-02-03] MEDS: FENTANYL CITRATE INJ 50 MCG/1 ML 2 ML VIAL IV PRN ×4 (18:40→18:55)
--- NOTE | 2017-02-03 18:59 | DIAGNOSTIC IMAGING REPORT ---
FLUOROSCOPIC IMAGES FROM LEFT RETROGRADE EXAM CLINICAL HISTORY: LEFT STENT PLACEMENT COMPARISON STUDY: CT of the abdomen and pelvis January 29, 2017 and KUB January 31, 2017. Fluoroscopy time: 63 seconds. FINDINGS: 2 fluoroscopic images from a left retrograde exam were obtained. These images demonstrate placement of a left ureteral stent. The distal aspect of the stent projects of the bladder while the proximal aspect projects over the left renal pelvis. Gas projecting over the left upper quadrant is likely within bowel. IMPRESSION: Fluoroscopic images demonstrating placement of a left ureteral stent. Electronically signed by: Rajendra Manzanares M.D. 02/03/2017 6:58 PM Dictated Date/Time: 02/03/2017 6:55 PM
--- NOTE | 2017-02-03 19:16 | Anesthesiology Progress Note ---
Anesthesia Post Op Note Date & Time Feb 03, 2017 at 19:15 Vital Signs Pain Intensity: 0 Vital Signs Past 12 Hours Date Time Temp Pulse Resp B/P Pulse Ox O2 Delivery O2 Flow Rate FiO2 02/03/17 19:11 17 02/03/17 19:11 64 17 151/89 02/03/17 19:06 60 21 96 02/03/17 19:06 59 21 02/03/17 19:05 145/88 02/03/17 19:04 174/96 02/03/17 19:03 65 14 98 02/03/17 19:03 63 14 02/03/17 19:03 37.2 63 17 145/88 98 Room Air 02/03/17 18:58 66 27 02/03/17 18:58 78 27 97 02/03/17 18:56 147/92 02/03/17 18:54 139/92 02/03/17 18:53 10 02/03/17 18:53 58 10 02/03/17 18:51 158/109 02/03/17 18:45 72 17 140/77 99 Room Air 02/03/17 18:35 68 17 130/83 99 Room Air 02/03/17 18:25 67 14 121/77 99 Mask 10 02/03/17 18:18 37.1 65 14 129/78 99 Mask 10 02/03/17 15:40 37 65 20 141/85 98 Room Air Notes Mental Status: alert / awake / arousable, participated in evaluation Pt Amnestic to Procedure: Yes Nausea / Vomiting: adequately controlled Pain: adequately controlled Airway Patency, RR, SpO2: stable & adequate BP & HR: stable & adequate Hydration State: stable & adequate Anesthetic Complications: no major complications apparent
[2017-02-03 19:25] VITALS: BP 156/93; PULSE 69; TEMP 36.5; O2SAT 97
[2017-02-03 19:53] VITALS: BP 148/81; PULSE 66; TEMP 36.7; O2SAT 96
== END | disposition home or self-care (01) ==
LOC: C.ACU 15:21
PROVIDERS: ATTEND Urology
DX: N20.1 Calculus of ureter (principal); N23 Unspecified renal colic; I10 Essential (primary) hypertension

== ENCOUNTER → 2017-02-19 | Day surgery (SDC) | payer BC ==
[2017-02-13 15:55] VITALS: BMI 22.0
[~2017-02-19] VITALS: Ht 160 cm; Wt 58.2 kg
[~2017-02-19] MED LIST changes: -CEFAZOLIN 2000 MG/60 ML D5W 60 ML IV SCH; +CEFAZOLIN 2000 MG/60 ML D5W IV SCH; +CEFAZOLIN IV 2,000 MG/60 ML D5W IV ONE; +CHECK SCOPOLAMINE PATCH PLACEMENT SCH; +FENTANYL CITRATE INJ 50 MCG/1 ML 2 ML VIAL IV PRN; -HYDR-5688 PO; -KETOROLAC TROMETHAMINE 30 MG/ML VIAL ONE; +LABETALOL HCL IV 5 MG/ML 20ML IV PRN; +LACTATED RINGER'S 1000ML 1,000 ML IV SCH; +MEPERIDINE HCL 25 MG/ML CARP IV PRN; -ONDA4TAB10 SL; -ONDA4TAB46 PO; -OXYC1TAB3 PO; -SCOPOLAMINE 1.5 MG TDSY TD ONE; +SCOPOLAMINE 1.5 MG TDSY TD SCH; -albuterol inhaler INH; -omega red PO
[2017-02-19 09:47] VITALS: BP 139/94; PULSE 71; TEMP 36.9; Ht 160 cm; Wt 58.2 kg
--- NOTE | 2017-02-19 11:37 | History and Physical ---
History Date of Service: Feb 19, 2017. Chief Complaint: left ureteral stone Primary Care Physician: Rah Snowden III, M.D. Pt seen a urologist before?: Yes If yes, why?: left ureteral stone History of Present Illness Patient presents for left ureteroscopy for an obstructing stone. She failed outpatient therapy and was taken to OR last week. She had a tight distal ureter so we were unable to reach stone. She had a stent placed. She finds stent very painful. Imaging CT, KUB, Ultrasound Laboratory Labs were reviewed and are within normal limits unless listed below. Labs are available in the chart and at [facility] Problem List Medical Problems: (1) Hypertension Status: Chronic (2) Left ureteral calculus Status: Acute (3) Renal colic Status: Acute Past History Past Medical History: anxiety, high cholesterol, kidney stones Past Surgical History: tubal ligation, other Family History Cancer Diabetes mellitus Heart disease Hypertension Lung disease Social History Hx Tobacco Use In Past Year?: No Smoking: non-smoker Alcohol: socially Drug use: none Marital status: Occupation status: employed History of MDRO No Allergies Coded Allergies: No Known Allergies (Unverified , 02/13/17) Medications Home Medications: Home Meds and Scripts Medications Dose Route/Sig Max Daily Dose Days Date Category Ventolin Hfa (Albuterol) 200 Puffs/93740 Mcg Aers 2-4 Puffs INH Q6H PRN 02/13/17 Reported Flomax (Tamsulosin Hcl) 0.4 Mg Cap 0.4 Mg PO QPM 02/13/17 Reported [place]-3 (Fish Oil) 1 Ea Cap 1 Cap PO QAM 02/13/17 Reported Multivitamin (Multivitamins) Tab 1 Tab PO DAILY 02/03/17 Reported Biotin 1 Mg Cap 3,000 Mg PO QAM 02/03/17 Reported Advil (Ibuprofen) 200 Mg Tab 400 Mg PO DAILY PRN 01/31/17 Reported Lisinopril 10 Mg Tab 10 Mg PO QAM 01/29/17 Reported Inpatient Medications: Current Inpatient Medications Medications (Trade) Dose Ordered Sig/Keshawn Route Start Time Stop Time Status Last Admin Dose Admin Scopolamine (Transderm-Scop Patch) 1.5 mg PREOP TD 02/19/17 06:00 02/19/17 18:00 02/19/17 10:15 1.5 MG Miscellaneous (Remove Transderm-Scop Patch) 1 ea Q72H N/A 02/22/17 06:00 02/22/17 06:01 Miscellaneous Information 1 ea 1 ea QS N/A 02/19/17 16:00 02/22/17 05:59 Lactated Ringer's 1,000 ml @ 15 mls/hr Q24H IV 02/19/17 06:00 02/20/17 05:59 02/19/17 10:16 15 MLS/HR Cefazolin Sodium (Ancef 2000mg/60 ml D5W) 60 ml @ 100 mls/hr PREOP IV 02/19/17 06:00 02/19/17 18:00 02/19/17 10:14 100 MLS/HR Review of Systems Review of Systems Constitutional: No chills, No fever Neurological: No dizzy, No passing out Gastrointestinal: + abdominal pain, + nausea, No constipation, No diarrhea Cardiovascular: No chest pain, No palpitations Respiratory: No chronic cough, No shortness of breath Female : + frequent urination, + kidney stones, + painful urination Physical Exam Vital Signs: Vital Signs Past 12 Hours Date Time Temp Pulse Resp B/P Pulse Ox O2 Delivery O2 Flow Rate FiO2 02/19/17 09:47 36.9 71 16 139/94 Room Air Physical Exam: General Appearance: WD/WN, no apparent distress, + thin Eyes: bilateral eyes normal inspection ENT: hearing grossly normal Respiratory/Chest: lungs clear, normal breath sounds, no respiratory distress Cardiovascular: regular rate, rhythm Extremities: non-tender, normal inspection, no pedal edema, no calf tenderness Neurologic/Psychiatric: alert, normal mood/affect, oriented x 3 Skin: normal color, warm/dry, no rash Assessment & Plan Assessment & Plan left upper ureteral stone plan stent removal, ureteroscopy, laser lithotripsy basket stone extraction and possible stent replacement. 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
--- NOTE | 2017-02-19 12:17 | [facility] Operative Report ---
Operative Report Operative Date Feb 19, 2017. Pre-Operative Diagnosis left ureteral stone Post-Operative Diagnosis left ureteral stone Procedure(s) Performed cystoscopy removal of left stent left ureteroscopy, basket stone extraction Surgeon bharat Internal Consultant Surgeon(s) none Estimated Blood Loss 0ml Findings radio-opaque mid ureteral stone, slight narrowing of distal left ureter Fluids 700mL Specimens left ureteral stone Drains none Anesthesia LMA Complication(s) None Disposition Recovery Room / PACU Indications left upper ureteral obstructing stone stented 2 weeks ago due to narrow distal ureter. She presents for stone removal. Description of Procedure Patient was given general LMA anesthesia and placed in lithotomy position. Her genitals were prepped and draped in sterile fashion. Time out held with team. I placed a 22 fr rigid cystoscope to bladder. The meatus is narrow and tight to the cystoscope. The urethra is otherwise unremarkable. The UOs are in normal location. There is no inflammation of bladder or debris in bladder. Left Stent has a mild amount of debris on it. I grasped the tip of her stent and withdrew it to the meatus. I placed a stiff wire up left ureter through the stent to the left kidney. I removed the stent and found it to be complete. I then placed a flexible ureteroscope up the left ureter under vision along side the wire. Her distal ureter has a narrowing which required rotation of scope to fit through. I found her ureteral stone in left mid ureter. It is dark brown, smooth and round. I used a 2.4 fr zero tip basket to retrieve it. It fit easily down the ureter whole but was tight just at the UO/intramural tunnel. I left bladder empty and concluded case. I placed a belladonna and opium suppository for post-op pain. She transferred to recovery under my escort, in stable condition. Plan: Home today Pyridium for dysuria x 3 days flomax daily until pain free oral pain meds as needed ASA 2 clean contaminated case 4 seconds fluoro ancef antibiotic pharmacy operations specialist I attest to the content of the Intraoperative Record and any orders documented therein. Any exceptions are noted below.
--- NOTE | 2017-02-19 12:23 | Discharge Instructions ---
Discharge Instructions Date of Service Feb 19, 2017. Admission Reason for Admission: Kidney Stone Discharge Discharge Diagnosis / Problem: left mid ureteral stone Discharge Goals Goal(s): Decrease discomfort, Improve disease control Activity Recommendations Activity Limitations: resume your previous activity Lifting Limitations: none Exercise/Sports Limitations: none May Resume Sexual Activity: when tolerated Shower/Bathe: no limitations Driving or Machine Use: resume 1 day after discharge you may return to work no restrictions in 3 days on 02/22/17 . Instructions / Follow-Up Instructions / Follow-Up you may see blood in urine or from urethra for a few days you may have bladder, abdominal or kidney pain for a few days. Use tamsulosin once daily if having any kidney or bladder pain use pyridium up to 3 x per day for any burning with urination use ibuprofen for mild or moderate pain use narcotic for severe pain stent had some mucous on it so I am giving you a short course of macrobid antibiotic to decrease chance a urine infection starts. we will see you in the office in 2-3 weeks to discuss the tone analysis. Discharge Diet Recommended Diet: Regular Diet Fluid Restriction: None Procedures Procedures Performed: cystoscoy, removal left stent, ureteroscopy with basket stone extraction. Pending Studies Studies pending at discharge: yes List of pending studies: urine culture and stone analysis Medical Emergencies . Who to Call and When: Medical Emergencies: If at any time you feel your situation is an emergency, please call 911 immediately. . Non-Emergent Contact Non-Emergency issues call your: Urologist ([phone]) Call Non-Emergent contact if: temperature is above 100.5 . . "Provider Documentation" section prepared by Miranda Dejesus. VTE Core Measure Inpt VTE Proph given/why not?: SCD's [place] Drug Monitoring Program Search Results: patient reviewed within database, no issues identified
--- NOTE | 2017-02-19 12:44 | DIAGNOSTIC IMAGING REPORT ---
INTRAOPERATIVE KUB X5 CLINICAL HISTORY: Left cysto, litho, and stent exchange COMPARISON STUDY: 02/03/2017 FINDINGS: 5 intraoperative fluoroscopic spot images are provided for interpretation. 4 seconds of fluoroscopic time was utilized. The images demonstrate a guidewire within the left ureter. The last images demonstrate a ureteroscope within the distal left ureter. No contrast was infused. IMPRESSION: Intraoperative fluoroscopic spot images during apparent left ureteral lithotripsy Electronically signed by: Akin Flores M.D. 02/19/2017 12:43 PM Dictated Date/Time: 02/19/2017 12:41 PM
--- NOTE | 2017-02-19 12:58 | Anesthesiology Progress Note ---
Anesthesia Post Op Note Date & Time Feb 19, 2017 at 12:58 Vital Signs Pain Intensity: 0 Vital Signs Past 12 Hours Date Time Temp Pulse Resp B/P Pulse Ox O2 Delivery O2 Flow Rate FiO2 02/19/17 12:45 59 14 133/94 98 Room Air 02/19/17 12:35 58 13 134/95 100 Mask 10 02/19/17 12:25 61 14 128/90 100 Mask 10 02/19/17 12:18 36.0 69 16 134/90 100 Mask 10 02/19/17 09:47 36.9 71 16 139/94 Room Air Notes Mental Status: alert / awake / arousable, participated in evaluation Pt Amnestic to Procedure: Yes Nausea / Vomiting: adequately controlled Pain: adequately controlled Airway Patency, RR, SpO2: stable & adequate BP & HR: stable & adequate Hydration State: stable & adequate Anesthetic Complications: no major complications apparent
[2017-02-19 13:05] VITALS: BP 146/88; PULSE 60; TEMP 36.7; O2SAT 99
[2017-02-19 13:35] VITALS: BP 151/93; PULSE 59; TEMP 36.6; O2SAT 98
[2017-02-19 14:10] VITALS: BP 152/89; PULSE 64; TEMP 36.8; O2SAT 96
== END | disposition home or self-care (01) ==
LOC: C.ACU 09:06
PROVIDERS: ATTEND Urology
DX: N20.1 Calculus of ureter (principal); I10 Essential (primary) hypertension

== ENCOUNTER → 2017-07-04 | Outpatient (CLI) | payer BC ==
[~2017-07-04] MED LIST changes: -ATROPINE SULFATE 0.1 MG/ML 5ML SYR IV PRN; -BELLADONNA/OPIUM SUPP 60 MG SUPP PR ONE; -CEFAZOLIN 2000 MG/60 ML D5W IV SCH; -CEFAZOLIN IV 2,000 MG/60 ML D5W IV ONE; -CHECK SCOPOLAMINE PATCH PLACEMENT SCH; -DEXAMETHASONE SOD INJ 4 MG/ML VIAL ONE; -EpHEDrine SULFATE INJ 50 MG/ML AMP IV PRN; -FENTANYL CITRATE INJ 50 MCG/1 ML 2 ML VIAL IV PRN; -FENTANYL CITRATE INJ 50 MCG/1 ML 2 ML VIAL ONE; -HYDROmorphone INJ 1 MG/ML SYR IV PRN; -LABETALOL HCL IV 5 MG/ML 20ML IV PRN; -LACTATED RINGER'S 1000ML 1,000 ML IV SCH; -LIDOCAINE HCL 2% 2 ML VIAL (20MG/ML) ONE; -MEPERIDINE HCL 25 MG/ML CARP IV PRN; -MIDAZOLAM HCL 1 MG/ML 2ML VIAL ONE; -NITR1CAP16 PO; -ONDANSETRON INJ 2 MG/ML 2 ML VIAL IV PRN; -ONDANSETRON INJ 2 MG/ML 2 ML VIAL ONE; -PHEN-775 PO; -PROPOFOL IV EMULSION 10 MG/ML 100 ML VIAL IV ONE; -PROPOFOL IV EMULSION 10 MG/ML 20 ML VIAL IV ONE; -SCOPOLAMINE 1.5 MG TDSY TD SCH
--- NOTE | 2017-07-04 15:33 | MAMMOGRAPHY REPORT ---
BILATERAL DIGITAL SCREENING MAMMOGRAM TOMOSYNTHESIS WITH CAD: 07/04/2017 CLINICAL HISTORY: Routine screening. Patient has no complaints. TECHNIQUE: Breast tomosynthesis in addition to standard 2D mammography was performed. Current study was also evaluated with a Computer Aided Detection (CAD) system. COMPARISON: Comparison is made to exams dated: 06/18/2016 mammogram, 06/15/2015 mammogram, 06/10/2013 m ammogram, 06/09/2012 mammogram, and 12/11/2009 mammogram - [facility]. BREAST COMPOSITION: The tissue of both breasts is heterogeneously dense, which may obscure small mas ses. FINDINGS: No suspicious masses, calcifications, or areas of architectural distortion are noted in ei ther breast. There has been no significant interval change compared to prior exams. IMPRESSION: ACR BI-RADS CATEGORY 1: NEGATIVE There is no mammographic evidence of malignancy. A 1 year screening mammogram is recommended. The pa tient will receive written notification of the results. Approximately 10% of breast cancers are not detected with mammography. A negative mammographic report should not delay biopsy if a clinically suggestive mass is present. Tarsha Fuller M.D. /:07/04/2017 15:12:47 Lead Die Molder: Tasia CRAWFORD(Romaine)(M), [facility] letter sent: Normal 1/2 BI-RADS Code: ACR BI-RADS Category 1: Negative
== END | disposition home or self-care (01) ==
LOC: C.MAMM 13:04
PROVIDERS: ATTEND Physician Assistant
DX: Z12.31 Encounter for screening mammogram for malignant neoplasm of breast (principal)

== ENCOUNTER 2017-11-05 09:11 | Observation (INO) | payer BC ==
[~2017-11-05] VITALS: Ht 160 cm; Wt 56.2 kg
[~2017-11-05 09:11] MED LIST changes: -OXYC-57 PO
[2017-11-05 09:47] LABS: BASO % 0.5 %; BASO ABS # 0.03 K/uL (0-0.2); COMPLETE YES; EOS % 5.8 %; HEMATOCRIT 39.5 % (37-47); LYMPH % 36.9 %; LYMPH ABS # 2.35 K/uL (1.2-3.4); MEAN CELL VOLUME 80.3 fL (80-100); MEAN CORPUSCULAR HEMOGLOBIN 26.6 pg (25-34); MEAN CORPUSCULAR HGB CONC 33.2 g/dl (32-36); MEAN PLATELET VOLUME 9.2 fL (7.4-10.4); MONO % 5.3 %; NEUT % 51.5 %; PLATELET COUNT 199 K/uL (130-400); RED BLOOD COUNT 4.92 M/uL (4.2-5.4); WHITE BLOOD COUNT 6.36 K/uL (4.8-10.8)
[2017-11-05 09:58] LABS: PROTHROMBIN TIME (PATIENT) 10.3 SECONDS (9.0-12.0)
--- NOTE | 2017-11-05 10:01 | DIAGNOSTIC IMAGING REPORT ---
CHEST ONE VIEW PORTABLE HISTORY: Atypical chest pain COMPARISON: None. FINDINGS: No pneumothorax. No pleural effusions. Mild bibasilar interstitial thickening. The heart is normal in size. No focal lung consolidations to suggest pneumonia. No evidence for pulmonary edema. Mild dextroscoliosis of the lumbar spine. IMPRESSION: Mild bibasilar interstitial thickening. This is nonspecific but favors chronic change. No focal lung consolidations to suggest pneumonia. Electronically signed by: Bandar Trevino M.D. 11/05/2017 9:59 AM Dictated Date/Time: 11/05/2017 9:58 AM
[2017-11-05 10:04] LABS: ALT/SGPT 39 U/L (12-78); BLOOD UREA NITROGEN 12 mg/dl (7-18); BUN/CREATININE RATIO 15.5 (10-20); CALCIUM 8.5 mg/dl (8.5-10.1); CARBON DIOXIDE 27 mmol/L (21-32); CHLORIDE 106 mmol/L (98-107); GLUCOSE 84 mg/dl (70-99); MAGNESIUM 2.3 mg/dl (1.8-2.4); POTASSIUM 3.5 mmol/L (3.5-5.1); SODIUM 140 mmol/L (136-145)
[2017-11-05 10:09] LABS: ALKALINE PHOSPHATASE 74 U/L (45-117); AST/SGOT 42 U/L (15-37); CKMB/CK RATIO 1.2 (0-3.0)
[2017-11-05 11:11] LABS: URINE APPEARANCE CLEAR (CLEAR); URINE BILIRUBIN NEG (NEG); URINE COLOR YELLOW; URINE NITRITE NEG (NEG); URINE PH 5.5 (4.5-7.5); URINE SPECIFIC GRAVITY 1.014 (1.000-1.030); UROBILINOGEN NEG (NEG); ZZUR CULT IF INDIC CLEAN CATCH NO
[2017-11-05 11:23] LABS: MANUAL MICROSCOPIC REQUIRED? NO; REVIEW REQ? NO
[2017-11-05] MEDS ORDERED: ONDANSETRON INJ 2 MG/ML 2 ML VIAL IV PRN (11:45)
[2017-11-05] MEDS ORDERED: NITROGLYCERIN 0.4 MG SL PER TAB CHARGE SL PRN (11:45)
[2017-11-05] MEDS ORDERED: ACETAMINOPHEN 325 MG TAB PO PRN (11:45)
[2017-11-05] MEDS ORDERED: OPTIRAY 320 IV PRN (11:45)
[2017-11-05] MEDS ORDERED: BIOTCAP2 PO (11:52)
--- NOTE | 2017-11-05 12:17 | DIAGNOSTIC IMAGING REPORT ---
CT ANGIOGRAM OF THE CHEST CLINICAL HISTORY: Atypical chest pain. Hypertension. Number. COMPARISON STUDY: Chest x-ray dated 11/05/2017 TECHNIQUE: Following the IV administration of 92 mL of Optiray-320, CT angiogram of the thorax was performed from the thoracic inlet to the lung bases utilizing the pulmonary embolus protocol. Images are reviewed in the axial, sagittal, and coronal planes. IV contrast was administered without complication. MIP imaging was performed. A dose lowering technique was utilized adhering to the principles of ALARA. CT DOSE: 180.86 mGy.cm FINDINGS: No pathologically enlarged axillary mediastinal or hilar lymph nodes were visualized. There was no evidence of thoracic aortic dilatation. There were no pulmonary artery filling defects to indicate acute pulmonary embolism. No pleural effusions are visualized. There are mild dependent atelectatic changes. There is no focal pulmonary consolidation. IMPRESSION: 1. No evidence of acute pulmonary embolism 2. No evidence of focal pulmonary consolidation. Electronically signed by: Akin Flores M.D. 11/05/2017 12:16 PM Dictated Date/Time: 11/05/2017 12:11 PM
[2017-11-05] MEDS ORDERED: ACETAMINOPHEN 325 MG TAB ONE (12:27)
--- NOTE | 2017-11-05 13:18 | History and Physical ---
History & Physical Date & Time of Service: Nov 05, 2017 at 12:55 Chief Complaint: Chest Pain Primary Care Physician: Rah Snowden III, M.D. History of Present Illness Source: patient, clinic records, hospital records This is a 56yo F with a PMH of HTN and asthma who presents with chest pain that began this morning. 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 No radiation down arms or up to jaw. Endorses associated dizziness and lightheadedness and states that she fell to her knees due to the severity of pain. Episode lasted about 8 minutes and then resolved. BP was taken at this time and was elevated at 152/109 per patient. Denies any SOB, diaphoresis, nausea vomiting. Experienced 2 additional episodes over the next few hours. Went to her PCP for evaluation and was given a full dose aspirin and sent to ER for further evaluation. Patient has + family history of heart disease, with her brother dying from an IL at age 48 and her Dad at 52. Patient denies any history of heart disease, MIs, arrhythmias. Is not a smoker. Has been on lisinopril in the past but stopped taking it 2 weeks ago due to symptomatic hypotension in the mornings. Currently endorses a dull frontal headache. Denies lightheadedness, visual changes, chest pain, palpitations, SOB, abd pain, nausea, vomiting, LE swelling. Past Medical/Surgical History Medical Problems: (1) Hypertension Status: Chronic Surgical Problems: (1) Status post tubal ligation Status: Resolved Family History Cancer Diabetes mellitus Heart disease Hypertension Lung disease Social History Smoking Status: Never Smoker Alcohol Use: occasionally (1x/month ) Marital Status: Housing status: lives with significant other Occupational Status: employed Multi-Drug Resistant Organisms History of MDRO: No Allergies Coded Allergies: No Known Allergies (Unverified , 02/13/17) Home Medications Scheduled Biotin (Biotin 5000), 1 TAB PO DAILY Fish Oil ([place]-3), 1 CAP PO QAM Multivitamin (Multivitamin), 1 TAB PO DAILY Scheduled PRN Albuterol Hfa (Ventolin Hfa), 2-4 PUFFS INH Q6H PRN for Wheezing Ibuprofen Tab (Advil), 400 MG PO DAILY PRN for Pain Review of Systems Ten systems reviewed and negative except as noted in the HPI. Physical Exam Vital Signs Date Time Temp Pulse Resp B/P (MAP) Pulse Ox O2 Delivery O2 Flow Rate FiO2 11/05/17 12:41 55 11/05/17 11:24 59 16 137/91 97 Room Air 11/05/17 09:56 59 20 156/99 99 Room Air 11/05/17 09:28 60 11/05/17 09:27 Room Air 11/05/17 09:25 Room Air 11/05/17 09:15 36.6 65 18 164/91 99 Room Air General Appearance: + mild distress Head: normocephalic, atraumatic Eyes: normal inspection, PERRL, sclerae normal ENT: normal ENT inspection, hearing grossly normal, pharynx normal (moist mucous membranes ) Neck: supple, thyroid normal, trachea midline Respiratory/Chest: chest non-tender, lungs clear, normal breath sounds, no respiratory distress Cardiovascular: no edema, no gallop, no JVD, normal peripheral pulses, + systolic murmur (Faint, LUSB) Abdomen/GI: non tender, soft, no organomegaly Back: normal inspection Extremities/Musculoskelatal: normal inspection, no calf tenderness, no pedal edema Neurologic/Psych: no motor/sensory deficits, alert, normal mood/affect, oriented x 3 Skin: normal color, warm/dry Diagnostics Laboratory Results Results Past 24 Hours Test 11/05/17 00:00 11/05/17 09:36 11/05/17 10:58 Range/Units White Blood Count 6.36 4.8-10.8 K/uL Red Blood Count 4.92 4.2-5.4 M/uL Hemoglobin 13.1 12.0-16.0 g/dL Hematocrit 39.5 37-47 % Mean Corpuscular Volume 80.3 80-100 fL Mean Corpuscular Hemoglobin 26.6 25-34 pg Mean Corpuscular Hemoglobin Concent 33.2 32-36 g/dl Platelet Count 199 130-400 K/uL Mean Platelet Volume 9.2 7.4-10.4 fL Neutrophils (%) (Auto) 51.5 % Lymphocytes (%) (Auto) 36.9 % Monocytes (%) (Auto) 5.3 % Eosinophils (%) (Auto) 5.8 % Basophils (%) (Auto) 0.5 % Neutrophils # (Auto) 3.27 1.4-6.5 K/uL Lymphocytes # (Auto) 2.35 1.2-3.4 K/uL Monocytes # (Auto) 0.34 0.11-0.59 K/uL Eosinophils # (Auto) 0.37 0-0.5 K/uL Basophils # (Auto) 0.03 0-0.2 K/uL RDW Standard Deviation 39.0 36.4-46.3 fL RDW Coefficient of Variation 13.3 11.5-14.5 % Immature Granulocyte % (Auto) 0.0 % Immature Granulocyte # (Auto) 0.00 0.00-0.02 K/uL Prothrombin Time 10.3 9.0-12.0 SECONDS Prothromb Time International Ratio 1.0 0.9-1.1 Activated Partial Thromboplast Time 26.4 21.0-31.0 SECONDS Partial Thromboplastin Ratio 1.0 Sodium Level 140 136-145 mmol/L Potassium Level 3.5 3.5-5.1 mmol/L Chloride Level 106 98-107 mmol/L Carbon Dioxide Level 27 21-32 mmol/L Anion Gap 6.0 3-11 mmol/L Blood Urea Nitrogen 12 7-18 mg/dl Creatinine 0.80 0.60-1.20 mg/dl Est Creatinine Clear Calc Drug Dose 65.7 ml/min Estimated GFR () 96.2 Estimated GFR (Non- 83.0 BUN/Creatinine Ratio 15.5 10-20 Random Glucose 84 70-99 mg/dl Calcium Level 8.5 8.5-10.1 mg/dl Magnesium Level 2.3 1.8-2.4 mg/dl Total Bilirubin 0.4 0.2-1 mg/dl Aspartate Amino Transf (AST/SGOT) 42 15-37 U/L Alanine Aminotransferase (ALT/SGPT) 39 12-78 U/L Alkaline Phosphatase 74 45-117 U/L Total Creatine Kinase 452 26-192 U/L Creatine Kinase MB 5.5 0.5-3.6 ng/ml Creatine Kinase MB Ratio 1.2 0-3.0 Troponin I < 0.015 0-0.045 ng/ml Total Protein 7.3 6.4-8.2 gm/dl Albumin 3.6 3.4-5.0 gm/dl Globulin 3.7 2.5-4.0 gm/dl Albumin/Globulin Ratio 1.0 0.9-2 Lipase 156 73-393 U/L D-Dimer 630 0-500 ug/L FEU Urine Color YELLOW Urine Appearance CLEAR CLEAR Urine pH 5.5 4.5-7.5 Urine Specific [place] 1.014 1.000-1.030 Urine Protein NEG NEG Urine Glucose (UA) NEG NEG Urine Ketones NEG NEG Urine Occult Blood NEG NEG Urine Nitrite NEG NEG Urine Bilirubin NEG NEG Urine Urobilinogen NEG NEG Urine Leukocyte Esterase NEG NEG Diagnostic Radiology CXR: IMPRESSION: Mild bibasilar interstitial thickening. This is nonspecific but favors chronic change. No focal lung consolidations to suggest pneumonia. Chest/thorax CTA: IMPRESSION: 1. No evidence of acute pulmonary embolism 2. No evidence of focal pulmonary consolidation. EKG Sinus bradycardia Otherwise normal ECG No change from prior EKG Impression Assessment and Plan This is a 56yo F with a PMH of HTN and asthma who presents with chest pain that began this morning. 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 Initiated IVFs -EKG-no ischemic changes. CXR-wnl -D dimer elevated, CTA without PE -Trend serial cardiac enzymes -Check echo, repeat EKG in am -Consult cardiology -Monitor on tele HTN: -BP reportedly elevated during episodes of CP this morning -Normotensive now -Monitor Asthma: -Stable -Home inhaler PRN DVT Ppx: Lovenox Code status: FULL PCP: Isi Dispo: Plan to return home once medically stable Patient seen in collaboration with Dr. Mendieta. Please see addendum. ADDENDUM: This is a 56 year old female with a PMH of HTN and asthma presents with substernal chest pain at work today. 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 States that at 5:45AM, she developed a crushing substernal chest pain that almost brought her to her knees. This lasted about 6-8 minutes and then subsided. She went on to see another patient, but the chest pain recurred, but this time it was worse. She took one baby aspirin tablet at the nursing facility. She refused to go to the ER, went to Dr. Snowden's office instead. At Dr. Snowden's office, she received a full dose aspirin, and her chest pain completely subsided at that time. An EKG was done, with no acute findings - but due to family history of early cardiac , she was told to come to the ED. She had an elevated d-dimer - CTA was done - no PE noted CXR no acute findings no elevation of initial cardiac enzymes EKG - sinus bradycardia Plan: Chest Pain r/o ACS trend cardiac enzymes check an echo monitor in tele aspirin 81mg she does "cardio" at her gym and runs 30 minutes at a time on a treadmill with no reproducible chest pain cardiology consulted for further input HTN had been prescribed Lisinopril, but not taking it the past two weeks due to low BP blood pressure here >150/90 given 5mg of Lisinopril now, continue daily Elevated CPK likely due to weight lifting at her gym will give gentle hydration and trend CPK DVT ppx Lovenox FULL CODE Level of Care Telemetry Resuscitation Status FULL RESUSCITATION VTE Prophylaxis VTE Risk Assessment Done? Y/N: Yes Risk Level: Low Given or contraindicated: Enoxaparin (Lovenox)SQ, SCD's
[2017-11-05 14:09] VITALS: BP 150/91; PULSE 61; TEMP 36.9; Ht 160 cm; Wt 56.2 kg
[2017-11-05] MEDS ORDERED: IV FLUIDS COMPLETED PRN (14:15)
--- NOTE | 2017-11-05 14:40 | EMERGENCY ROOM VISIT NOTE ---
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 She relates that she was given an enteric coated aspirin by a co-worker at that time. She then went to her pcp and he gave her Aspirin 324mg po. She was sent to the ED. She currently relates that the pain has resolved. She described it as a "tightness". Anxious. History of Present Illness The patient is a 56 year old female who presents to the Emergency Room via private vehicle accompanied by male with complaints of "chest pain". The patient states that earlier today between 6 and 7 AM she was at work walking when she developed substernal chest pain lasted about 8 minutes and was associated with dizziness, and lightheadedness. She states that this and happened 2 more times. She points to the substernal region as the location of pain that she felt that time but denies any upon presentation. She states that she was recommended to come here by her family doctor. She is a history of hypertension, and a strong family history of myocardial infarction. She notes that she stopped her lisinopril about 2 weeks ago because she had made lifestyle changes and believe that she was helping her blood pressure. Review of Systems A complete 10-point Review of Systems was discussed with the patient, with pertinent positives and negatives listed in the History of Present Illness. All remaining Review of Systems questions can be considered negative unless otherwise specified. Past Medical/Surgical History Medical Problems: (1) Chest pain (2) Hypertension Surgical Problems: (1) Status post tubal ligation Family History Cancer Diabetes mellitus Heart disease Hypertension Lung disease Social History Smoking Status: Unknown if Ever Smoked Alcohol Use: occasionally Marital Status: Housing Status: lives with family Occupation Status: employed Current/Historical Medications Scheduled Biotin (Biotin 5000), 1 TAB PO DAILY Fish Oil ([place]-3), 1 CAP PO QAM Multivitamin (Multivitamin), 1 TAB PO DAILY Scheduled PRN Albuterol Hfa (Ventolin Hfa), 2-4 PUFFS INH Q6H PRN for Wheezing Ibuprofen Tab (Advil), 400 MG PO DAILY PRN for Pain Physical Exam Vital Signs Date Time Temp Pulse Resp B/P (MAP) Pulse Ox O2 Delivery O2 Flow Rate FiO2 11/05/17 11:24 59 16 137/91 97 Room Air 11/05/17 09:56 59 20 156/99 99 Room Air 11/05/17 09:28 60 11/05/17 09:27 Room Air 11/05/17 09:25 Room Air 11/05/17 09:15 36.6 65 18 164/91 99 Room Air Physical Exam VITAL SIGNS - Vital signs and nursing notes were reviewed. Stable. GENERAL - 56-year-old female her stated age who is in no acute distress. Communicates well with provider and answers questions appropriately. SKIN - Without rashes. HEAD - NC/AT. EYES - Sclera anicteric. EARS - No deformities of external structures noted on gross examination bilaterally. NOSE - Midline and without cyanosis. No epistaxis or purulent drainage noted. MOUTH/OROPHARYNX - Without perioral cyanosis. NECK - Neck with FROM. LUNGS - Chest wall symmetric without accessory muscle use, intercostals retractions, or central cyanosis. Normal vesicular breath sounds CTA B/L. No wheezes, rales, or rhonchi appreciated. CARDIAC - RRR with S1/S2. Questionable Systolic murmur noted/click. No rubs, or gallops appreciated. ABDOMEN - Abdominal contour normal without pulsations or visible masses. EXTREMITIES - No clubbing or peripheral cyanosis. +5/5 strength noted in UE/LE bilaterally. NEUROLOGIC - Cranial nerves II through XII grossly intact. PSYCH - A&O and cooperates fully with examiner. Pt is very pleasant and interacts well with examiner. Medical Decision & Procedures ER Provider Diagnostic Interpretation: CHEST ONE VIEW PORTABLE HISTORY: Atypical chest pain COMPARISON: None. FINDINGS: No pneumothorax. No pleural effusions. Mild bibasilar interstitial thickening. The heart is normal in size. No focal lung consolidations to suggest pneumonia. No evidence for pulmonary edema. Mild dextroscoliosis of the lumbar spine. IMPRESSION: Mild bibasilar interstitial thickening. This is nonspecific but favors chronic change. No focal lung consolidations to suggest pneumonia. Electronically signed by: Bandar Trevino M.D. 11/05/2017 9:59 AM Dictated Date/Time: 11/05/2017 9:[address] ANGIOGRAM OF THE CHEST CLINICAL HISTORY: Atypical chest pain. Hypertension. Number. COMPARISON STUDY: Chest x-ray dated 11/05/2017 TECHNIQUE: Following the IV administration of 92 mL of Optiray-320, CT angiogram of the thorax was performed from the thoracic inlet to the lung bases utilizing the pulmonary embolus protocol. Images are reviewed in the axial, sagittal, and coronal planes. IV contrast was administered without complication. MIP imaging was performed. A dose lowering technique was utilized adhering to the principles of ALARA. CT DOSE: 180.86 mGy.cm FINDINGS: No pathologically enlarged axillary mediastinal or hilar lymph nodes were visualized. There was no evidence of thoracic aortic dilatation. There were no pulmonary artery filling defects to indicate acute pulmonary embolism. No pleural effusions are visualized. There are mild dependent atelectatic changes. There is no focal pulmonary consolidation. IMPRESSION: 1. No evidence of acute pulmonary embolism 2. No evidence of focal pulmonary consolidation. Electronically signed by: Akin Flores M.D. 11/05/2017 12:16 PM Dictated Date/Time: 11/05/2017 12:11 PM Laboratory Results 11/05/17 00:00 Red Blood Count 4.92, Mean Corpuscular Volume 80.3, Mean Corpuscular Hemoglobin 26.6, Mean Corpuscular Hemoglobin Concent 33.2, Mean Platelet Volume 9.2, Neutrophils (%) (Auto) 51.5, Lymphocytes (%) (Auto) 36.9, Monocytes (%) (Auto) 5.3, Eosinophils (%) (Auto) 5.8, Basophils (%) (Auto) 0.5, Neutrophils # (Auto) 3.27, Lymphocytes # (Auto) 2.35, Monocytes # (Auto) 0.34, Eosinophils # (Auto) 0.37, Basophils # (Auto) 0.03 11/05/17 00:00 Test 11/05/17 00:00 11/05/17 09:36 11/05/17 10:58 White Blood Count 6.36 K/uL (4.8-10.8) Red Blood Count 4.92 M/uL (4.2-5.4) Hemoglobin 13.1 g/dL (12.0-16.0) Hematocrit 39.5 % (37-47) Mean Corpuscular Volume 80.3 fL (80-100) Mean Corpuscular Hemoglobin 26.6 pg (25-34) Mean Corpuscular Hemoglobin Concent 33.2 g/dl (32-36) Platelet Count 199 K/uL (130-400) Mean Platelet Volume 9.2 fL (7.4-10.4) Neutrophils (%) (Auto) 51.5 % Lymphocytes (%) (Auto) 36.9 % Monocytes (%) (Auto) 5.3 % Eosinophils (%) (Auto) 5.8 % Basophils (%) (Auto) 0.5 % Neutrophils # (Auto) 3.27 K/uL (1.4-6.5) Lymphocytes # (Auto) 2.35 K/uL (1.2-3.4) Monocytes # (Auto) 0.34 K/uL (0.11-0.59) Eosinophils # (Auto) 0.37 K/uL (0-0.5) Basophils # (Auto) 0.03 K/uL (0-0.2) RDW Standard Deviation 39.0 fL (36.4-46.3) RDW Coefficient of Variation 13.3 % (11.5-14.5) Immature Granulocyte % (Auto) 0.0 % Immature Granulocyte # (Auto) 0.00 K/uL (0.00-0.02) Prothrombin Time 10.3 SECONDS (9.0-12.0) Prothromb Time International Ratio 1.0 (0.9-1.1) Activated Partial Thromboplast Time 26.4 SECONDS (21.0-31.0) Partial Thromboplastin Ratio 1.0 Anion Gap 6.0 mmol/L (3-11) Est Creatinine Clear Calc Drug Dose 65.7 ml/min Estimated GFR () 96.2 Estimated GFR (Non- 83.0 BUN/Creatinine Ratio 15.5 (10-20) Calcium Level 8.5 mg/dl (8.5-10.1) Magnesium Level 2.3 mg/dl (1.8-2.4) Total Bilirubin 0.4 mg/dl (0.2-1) Aspartate Amino Transf (AST/SGOT) 42 U/L (15-37) Alanine Aminotransferase (ALT/SGPT) 39 U/L (12-78) Alkaline Phosphatase 74 U/L (45-117) Total Creatine Kinase 452 U/L (26-192) Creatine Kinase MB 5.5 ng/ml (0.5-3.6) Creatine Kinase MB Ratio 1.2 (0-3.0) Troponin I < 0.015 ng/ml (0-0.045) Total Protein 7.3 gm/dl (6.4-8.2) Albumin 3.6 gm/dl (3.4-5.0) Globulin 3.7 gm/dl (2.5-4.0) Albumin/Globulin Ratio 1.0 (0.9-2) Lipase 156 U/L (73-393) D-Dimer 630 ug/L FEU (0-500) Urine Color YELLOW Urine Appearance CLEAR (CLEAR) Urine pH 5.5 (4.5-7.5) Urine Specific [place] 1.014 (1.000-1.030) Urine Protein NEG (NEG) Urine Glucose (UA) NEG (NEG) Urine Ketones NEG (NEG) Urine Occult Blood NEG (NEG) Urine Nitrite NEG (NEG) Urine Bilirubin NEG (NEG) Urine Urobilinogen NEG (NEG) Urine Leukocyte Esterase NEG (NEG) Medical Decision Patient was seen and evaluated as above. She presents today with chest pain. Bedside EKG was obtained and reveals sinus bradycardia, rate of 55 bpm without ectopy or ischemic change. The patient has no history of cardiac ailments however does note hypertension. There is a strong family history of myocardial infarction. Initial troponin negative. CKMB and CPK elevated. CXR and CT CHEST after positive d dimer revealed no acute process. She was hypertensive upon arrival. CBC unremarkable. Coags normal except for d-dimer elevated at 6:30. Metabolic panel reveals AST high at 42, and total CK hot or 52 and CK-MB high at 5.5. Urine negative. I recommend further evaluation and management in the inpatient setting secondary to her strong family history of MT, new murmur noted to auscultation, elevated CPK, CK-MB and concerning history. I discussed the case with the hospitalist, Krys Caruso. Please refer to further documentation regarding her stay. In evaluation treatment this patient following differential diagnoses were entertained: MT, PE, unstable angina, pericarditis, costochondritis, among others. Impression Primary Impression: Chest pain Departure Information Dispostion Admitted as an inpatient Condition FAIR Referrals Rah Snowden III, M.D. (PCP) Forms Call Back Authorization, HOME CARE DOCUMENTATION FORM, IMPORTANT VISIT INFORMATION Patient Instructions My [facility]
[2017-11-05] MEDS: SODIUM CHLORIDE 0.9% 1000ML 1,000 ML IV SCH (15:09)
[2017-11-05] MEDS ORDERED: LISINOPRIL 5 MG TAB PO ONE (15:30)
[2017-11-05] MEDS ORDERED: ALBUTEROL HFA 8 GM INHALER INH PRN (15:30)
[2017-11-05 15:40] LABS: HEMATOCRIT 38.2 % (37-47); MEAN CELL VOLUME 79.6 fL (80-100); MEAN CORPUSCULAR HEMOGLOBIN 26.5 pg (25-34); MEAN CORPUSCULAR HGB CONC 33.2 g/dl (32-36); MEAN PLATELET VOLUME 9.2 fL (7.4-10.4); PLATELET COUNT 177 K/uL (130-400); WHITE BLOOD COUNT 5.54 K/uL (4.8-10.8)
[2017-11-05 15:44] VITALS: BP 145/88; PULSE 54; TEMP 36.6; O2SAT 97
[2017-11-05 15:57] LABS: BLOOD UREA NITROGEN 12 mg/dl (7-18); CALCIUM 8.5 mg/dl (8.5-10.1); CARBON DIOXIDE 29 mmol/L (21-32); CHLORIDE 106 mmol/L (98-107); CREATININE 0.77 mg/dl (0.60-1.20); GLUCOSE 81 mg/dl (70-99); POTASSIUM 3.6 mmol/L (3.5-5.1); SODIUM 138 mmol/L (136-145)
[2017-11-05] MEDS ORDERED: INFLUENZA VIRUS QUAD VACCINE 0.5 ML SYR IM. ONE (16:00)
[2017-11-05] MEDS ORDERED: INFLUENZA ADMINISTRATION CHARGE ONE (16:00)
[2017-11-05] MEDS ORDERED: ENOXAPARIN 40 MG/0.4 ML SYR SC SCH (16:00)
[2017-11-05 16:02] LABS: CKMB/CK RATIO 1.2 (0-3.0)
--- NOTE | 2017-11-05 19:26 | ECHOCARDIOGRAM REPORT ---
*NOTICE TO RECEIVING REPUBLICAN AGENCY This information is strictly Confidential and protected under [place] law. [place] law prohibits you from making any further disclosure of this information unless further disclosure is expressly permitted by the written consent of the person to whom it pertains or is authorized by law. A general authorization for the release of medical or other information is not sufficient for this purpose. Hospital accepts no responsibility if the information is made available to any other person, INCLUDING THE PATIENT. Interpretation Summary * Name: WILEBR MCDONNELL Study Date: 11/05/2017 01:54 PM BP: 134/72 mmHg * Patient Location: [facility] HR: 59 * : 1960 (M/d/yyyy) Gender: Female Height: 62 in * Age: 56 yrs Ethnicity: [place] Weight: 125 lb * Ordering Physician: Krys Caruso * Referring Physician: Self, Referred * Performed By: Leela Patterson RDCS * * Reason For Study: Chest Pain * BSA: 1.6 m2 * -- Conclusions -- * The left ventricle is normal in size. * There is normal left ventricular wall thickness. * The left ventricular wall motion is normal. * Left ventricular systolic function is normal. * Ejection Fraction = 55-60%. * A bicuspid aortic valve cannot be excluded. * Aortic valve sclerosis mild, without significant aortic valvular stenosis. * The anterior mitral valve leaflet is mildy redundant. * There is trace mitral regurgitation. * There is mild tricuspid regurgitation. * Doppler findings do not suggest pulmonary hypertension. * The aortic root is normal size. Procedure Details * A complete two-dimensional transthoracic echocardiogram was performed (2D, M-mode, Doppler and color flow Doppler). Left Ventricle * The left ventricle is normal in size. * There is normal left ventricular wall thickness. * Ejection Fraction = 55-60%. * Left ventricular systolic function is normal. * The left ventricular wall motion is normal. Right Ventricle * The right ventricle is normal in size and function. Atria * The left atrial size is normal. * Right atrial size is normal. * No ASD detected; PFO is not assessed. Mitral Valve * The anterior mitral valve leaflet is mildy redundant. * There is no mitral valve stenosis. * There is trace mitral regurgitation. Tricuspid Valve * The tricuspid valve anatomy is normal. * There is no tricuspid stenosis. * There is mild tricuspid regurgitation. * Doppler findings do not suggest pulmonary hypertension. Aortic Valve * A bicuspid aortic valve cannot be excluded. * Aortic valve sclerosis mild, without significant aortic valvular stenosis. * No aortic regurgitation is present. Pulmonic Valve * The pulmonic valve is not well visualized. Great Vessels * The aortic root is normal size. Pericardium/Pleural * There is no pericardial effusion. Great Vessels * Normal inferior vena cava diameter and respiratory variation suggests normal central venous pressure. MMode 2D Measurements and Calculations IVSd 0.95 cm IVSs 10 cm LVIDd 3.9 cm LVIDs 2.8 cm LVPWd 0.91 cm LVPWs 1.3 cm IVS/LVPW 1.0 FS 29.3 % EDV(Teich) 65.7 ml ESV(Teich) 28.4 ml EF(Teich) 56.8 % EDV(cubed) 59.1 ml ESV(cubed) 20.9 ml EF(cubed) 64.6 % % IVS thick 5.1 % % LVPW thick 44.9 % LV mass(C)d 109.9 grams LV mass(C)dI 70.2 grams/m\S\2 LV mass(C)s 91.6 grams LV mass(C)sI 58.5 grams/m\S\2 SV(Teich) 37.4 ml SI(Teich) 23.9 ml/m\S\2 SV(cubed) 38.2 ml SI(cubed) 24.4 ml/m\S\2 Ao root diam 2.8 cm Ao root area 6.1 cm\S\2 ACS 1.8 cm LA dimension 2.3 cm LA/Ao 0.81 LVAd ap4 26.4 cm\S\2 LVLd ap4 8.3 cm EDV(MOD-sp4) 72.3 ml EDV(sp4-el) 71.5 ml LVAs ap4 15.5 cm\S\2 LVLs ap4 7.0 cm ESV(MOD-sp4) 30.5 ml ESV(sp4-el) 29.3 ml EF(MOD-sp4) 57.8 % EF(sp4-el) 59.1 % LVAd ap2 25.4 cm\S\2 LVLd ap2 8.1 cm EDV(MOD-sp2) 70.8 ml EDV(sp2-el) 67.8 ml LVAs ap2 15.8 cm\S\2 LVLs ap2 7.2 cm ESV(MOD-sp2) 30.7 ml ESV(sp2-el) 29.3 ml EF(MOD-sp2) 56.6 % EF(sp2-el) 56.7 % LVLd %diff -2.42 % EDV(MOD-bp) 72.6 ml LVLs %diff 3.7 % ESV(MOD-bp) 31.2 ml EF(MOD-bp) 57.0 % SV(MOD-sp4) 41.8 ml SI(MOD-sp4) 26.7 ml/m\S\2 SV(MOD-sp2) 40.1 ml SI(MOD-sp2) 25.6 ml/m\S\2 SV(MOD-bp) 41.3 ml SI(MOD-bp) 26.4 ml/m\S\2 SV(sp4-el) 42.2 ml SI(sp4-el) 27.0 ml/m\S\2 SV(sp2-el) 38.5 ml SI(sp2-el) 24.6 ml/m\S\2 Doppler Measurements and Calculations MV E max kyra 77.6 cm/sec MV A max kyra 92.2 cm/sec MV E/A 0.84 MV dec time 0.24 sec Ao V2 max 131.0 cm/sec Ao max PG 6.9 mmHg Ao max PG (full) 3.2 mmHg LV V1 max PG 3.7 mmHg LV V1 max 96.0 cm/sec PA V2 max 75.9 cm/sec PA max PG 2.3 mmHg PI max kyra 115.6 cm/sec PI max PG 5.3 mmHg PI dec slope 71.8 cm/sec\S\2 PI P1/2t 471.4 msec TR max kyra 196.9 cm/sec
[2017-11-05 19:44] VITALS: BP 103/64; PULSE 70; TEMP 36.8; O2SAT 94
--- NOTE | 2017-11-05 21:04 | CARDIOLOGY CONSULTATION ---
DATE OF CONSULTATION: 11/05/2017 ADDENDUM PHYSICAL EXAMINATION: VITAL SIGNS: Heart rate is 54, blood pressure is 145/88 and equal in both arms. HEENT: Normocephalic, atraumatic. Nares without discharge. Throat was clear. NECK: Supple without thyromegaly or lymphadenopathy. There are no carotid bruits. Carotid pulses are 2+/4 without delay. LUNGS: Clear to auscultation. CARDIOVASCULAR: Regular with a grade 1/6 systolic murmur. There is no diastolic murmur. PMI is nondisplaced. There is no chest wall tenderness. ABDOMEN: Soft, nontender. There is no palpable hepatosplenomegaly. There is no hepatojugular reflux. EXTREMITIES: Without cyanosis or clubbing. There is no peripheral edema. There are intact distal pulses. NEUROLOGIC: The patient is intact. DIAGNOSTIC DATA: EKG on presentation revealed sinus bradycardia but otherwise normal tracing. No acute ST segment changes. LABORATORY STUDIES: White cell count is 5.5, hemoglobin is 12.7, hematocrit 38.2. Sodium is 138, potassium is 3.6, chloride is 106, bicarbonate 29, BUN 12, creatinine 0.77. Initial CK and MB fractions are elevated though with normal troponins x2. Lipase is 156. Chest x-ray reveals no infiltrate or edema. CT scan done due to elevated D-dimer demonstrated no pulmonary emboli or acute pulmonary consolidation. IMPRESSION: A 56-year-old female with cardiac risk factors of hypertension and strong family history of premature coronary disease, undefined lipid status presented with severe substernal chest pain, waxing and waning multiple episodes earlier today. Symptoms were severe enough to stop the patient's activities. She has had no further recurrence since hospitalization. Initial CT scan of the chest was unrevealing. EKGs do not reflect acute injury or infarct nor do troponins. CPK-MB are mildly elevated. Echocardiogram has been reviewed demonstrating on preliminary review preserved LV systolic function. Discussed findings in detail to the patient. She has already received aspirin, subcutaneous Lovenox at low dose and lisinopril for elevated blood pressures. We will maintain telemetry pulse CK, troponins and EKGs. Echocardiogram will be reported depending on clinical evolution to decide cardiac catheterization versus stress echocardiography. The patient is agreeable to plan. We will contact staff with any new recurrence of symptoms while in the hospital.
[2017-11-05 23:45] VITALS: BP 105/67; PULSE 62; TEMP 36.7; O2SAT 96
[2017-11-06] MEDS: SODIUM CHLORIDE 0.9% 1000ML 1,000 ML IV SCH (02:49)
[2017-11-06 04:21] VITALS: BP 122/80; PULSE 55; TEMP 36.4; O2SAT 95
--- NOTE | 2017-11-06 07:08 | CARDIOLOGY CONSULTATION ---
DATE OF CONSULTATION: 11/05/2017 REFERRING: Krys Caruso and Dr. Mendieta. PRIMARY CARE PHYSICIAN: Dr. Snowden. INDICATION: Substernal chest pain. 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 Symptoms were described as very severe, 8-10/10, substernal pain in the mid chest. Pain was severe enough to "bring her to her knees." Symptoms resolved and she began to do additional activities and symptoms recurred with associated symptoms of lightheadedness. She noted no shortness of breath or diaphoresis. 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 waxed and waned evaluation by her primary care physician and took an aspirin and recommended ER evaluation. She had an EKG abnormality troponin negative. She is referred now for further evaluation. myocardial infarction, , scarlet fever, spider bite on her hand with antibiotic therapy the week prior to presentation. Appetite has been good, has lost approximately 10 pounds through diet and exercise recently. Does exercise regularly and walk on a treadmill on Sundays, approximately with good tolerance. No claudication symptoms. Notes no rash or pruritic . The patient does have occasional headache, no acute visual changes or dental issues. ALLERGIES: None. MEDICATIONS PRIOR TO HOSPITALIZATION: Albuterol inhaler, biotin, omega-3 fish oil, ibuprofen and a multivitamin per day. PAST SURGICAL HISTORY: Notable for renal biopsy in January of this year. FAMILY HISTORY: Notable for acute myocardial infarction in brother at age 48, father at age 52. 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 She is nonsmoker, rare alcohol user.
[2017-11-06 07:30] VITALS: BP 128/71; PULSE 61; TEMP 36.5; O2SAT 94
[2017-11-06 08:01] VITALS: O2SAT 94
[2017-11-06] MEDS ORDERED: ASPIRIN 81 MG ECTAB PO SCH (09:00)
[2017-11-06] MEDS ORDERED: LISINOPRIL 5 MG TAB PO SCH (09:00)
--- NOTE | 2017-11-06 10:24 | CARDIOLOGY PROGRESS NOTE ---
DATE: 11/06/2017 CARDIOLOGY CONSULTATION FOLLOWUP NOTE The patient was seen and examined. Chart, medications, and telemetry were reviewed. SUBJECTIVE: The patient has no further pains or discomfort overnight. Notes no fevers, chills or productive cough. Notes no orthopnea, PND or peripheral edema, and was referred and underwent stress testing this morning with good tolerance. OBJECTIVE: VITAL SIGNS: Heart rate is 61 and blood pressure is 128/71. HEENT: Normocephalic and atraumatic. NECK: Thin. There are no carotid bruits. LUNGS: Clear to auscultation. CARDIOVASCULAR: Regular with normal S1 and S2. There is no audible murmur, gallop or rub. PMI is nondisplaced. ABDOMEN: Soft. EXTREMITIES: Without cyanosis or clubbing. There is no peripheral edema. DATA: The patient was referred and underwent stress echocardiography this morning. The patient exercised for a total of 15 minutes on a standard Govind protocol, achieving a maximum heart rate greater than 110 without cardiac symptoms or complaints with good tolerance with exercise. There were no stress induced EKG abnormalities. Exercise and rest echocardiogram were normal. Study was negative for stress induced ischemia with a very high level workload and heart rate tolerance. LABORATORY DATA: CBC yesterday revealed mild microcytosis. Hemoglobin of 12.7. IMPRESSION AND PLAN: A 56-year-old female admitted with severe epigastric substernal chest discomfort, multiple cardiac risk factors, but no evidence of stress-induced ischemia, stress testing and with normal EKGs and cardiac enzymes. Findings reflect noncardiac etiology the patient's symptoms. Consider a possible gastrointestinal workup. URIEL
--- NOTE | 2017-11-06 10:39 | EXERCISE STRESS ECHO ---
*NOTICE TO RECEIVING REPUBLICAN AGENCY This information is strictly Confidential and protected under [place] law. [place] law prohibits you from making any further disclosure of this information unless further disclosure is expressly permitted by the written consent of the person to whom it pertains or is authorized by law. A general authorization for the release of medical or other information is not sufficient for this purpose. Hospital accepts no responsibility if the information is made available to any other person, INCLUDING THE PATIENT. Interpretation Summary * Name: WILBER MCDONNELL Study Date: 11/06/2017 08:18 AM BP: 144/70 mmHg * Patient Location: [facility]\S\N285\S\2 HR: 56 * : 1960 (M/d/yyyy) Gender: Female Height: 63 in * Age: 56 yrs Ethnicity: [place] Weight: 123 lb * Ordering Physician: Kb Nolen * Referring Physician: KIMBERLI * Performed By: Emily Caban RDCS * * Reason For Study: CHEST PAIN * BSA: 1.6 m2 * The exercise echocardiographic examination is normal without resting left ventricular wall motion abnormalities or inducible ischemia. * _ workload achieved. Procedure Details * ECHOEX, CPT #52645 Left Ventricle * The left ventricle is normal in size. * There is normal left ventricular wall thickness. * Left ventricular systolic function is normal. * Resting wall motion: Normal. Stress wall motion: Appropriate increase in Left ventricular systolic function and decrease in cavity size. No stress induced segmental wall motion abnormalities. Stress Parameters * Normal baseline electrocardiogram. * Stress ECG: No ST changes. No arrhythmias. * The stress portion of this study was personally supervised by the undersigned interpreting physician. * Rest heart rate was '56' BPM. * Rest blood pressure was '144/70' * Maximum heart rate achieved was 184 bpm. * Maximum heart rate was 111 % of maximum age-predicted heart rate. * Maximum blood pressure was '168/83' * Total exercise time was '15:00' * Maximum exercise MET level achieved was '17.20' METS * Maximum treadmill speed was '5' miles per hour. * Maximum treadmill elevation was '18'% grade. * Exercise was terminated due to 'ACHIEVING TARGET HR'
--- NOTE | 2017-11-06 11:47 | Progress Note ---
Internal Med Progress Note Date of Service: Nov 06, 2017. Provider Documentation: SUBJECTIVE: The patient was seen and examined Admitted with atypical CP Negative for any ACS Negative Stress ECHO No more symptoms OBJECTIVE: Vital Signs-as noted below Exam: General-NO distress at rest Eyes-normal ENT-normal Neck-supple Lungs-Clear to auscultate bilaterally Heart-Regular,no murmur Abdomen-Benign,no masses,bowel sound present Extremities-No edema Neuro-AAOx3 Lab data as noted below. ASSESSMENT & PLAN: This is a 56yo F with a PMH of HTN and asthma who presents with chest pain that began this morning. 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 CXR-wnl -D dimer elevated, CTA without PE -Consult cardiology-appreciate Input Stress ECHO-negative Resting ECHO:: The left ventricle is normal in size. * There is normal left ventricular wall thickness. * The left ventricular wall motion is normal. * Left ventricular systolic function is normal. * Ejection Fraction = 55-60%. * A bicuspid aortic valve cannot be excluded. * Aortic valve sclerosis mild, without significant aortic valvular stenosis. * The anterior mitral valve leaflet is mildy redundant. * There is trace mitral regurgitation. * There is mild tricuspid regurgitation. * Doppler findings do not suggest pulmonary hypertension. * The aortic root is normal size. Stress ECHO::The left ventricle is normal in size. * There is normal left ventricular wall thickness. * Left ventricular systolic function is normal. * Resting wall motion: Normal. Stress wall motion: Appropriate increase in Left ventricular systolic function and decrease in cavity size. No stress induced segmental wall motion abnormalities. Noncardiac pain GI W/U Suggested if symptoms persists HTN: -BP reportedly elevated during episodes of CP this morning -Normotensive now -remains normotensive Asthma: -Stable -Home inhaler PRN DVT Ppx: Lovenox Code status: FULL PCP: Gooding Dispo: Plan to return home once medically stable Discharge home today Vital Signs: Date Time Temp Pulse Resp B/P (MAP) Pulse Ox O2 Delivery O2 Flow Rate FiO2 11/06/17 08:01 94 Room Air 11/06/17 07:30 36.5 61 18 128/71 (90) 94 Room Air 11/06/17 04:21 36.4 55 18 122/80 (94) 95 Room Air 11/06/17 04:00 Room Air 11/06/17 00:00 Room Air 11/05/17 23:45 36.7 62 18 105/67 (80) 96 Room Air 11/05/17 20:00 Room Air 11/05/17 19:44 36.8 70 18 103/64 (77) 94 Room Air 11/05/17 16:00 Room Air 11/05/17 15:44 36.6 54 18 145/88 (107) 97 Room Air 11/05/17 14:09 36.9 61 18 150/91 Room Air 11/05/17 12:57 59 16 134/72 97 Room Air 11/05/17 12:41 55 Lab Results: Results Past 24 Hours Test 11/05/17 15:23 11/05/17 21:15 Range/Units White Blood Count 5.54 4.8-10.8 K/uL Red Blood Count 4.80 4.2-5.4 M/uL Hemoglobin 12.7 12.0-16.0 g/dL Hematocrit 38.2 37-47 % Mean Corpuscular Volume 79.6 80-100 fL Mean Corpuscular Hemoglobin 26.5 25-34 pg Mean Corpuscular Hemoglobin Concent 33.2 32-36 g/dl RDW Standard Deviation 38.5 36.4-46.3 fL RDW Coefficient of Variation 13.4 11.5-14.5 % Platelet Count 177 130-400 K/uL Mean Platelet Volume 9.2 7.4-10.4 fL Sodium Level 138 136-145 mmol/L Potassium Level 3.6 3.5-5.1 mmol/L Chloride Level 106 98-107 mmol/L Carbon Dioxide Level 29 21-32 mmol/L Anion Gap 3.0 3-11 mmol/L Blood Urea Nitrogen 12 7-18 mg/dl Creatinine 0.77 0.60-1.20 mg/dl Est Creatinine Clear Calc Drug Dose 68.3 ml/min Estimated GFR () 100.7 Estimated GFR (Non- 86.9 BUN/Creatinine Ratio 16.0 10-20 Random Glucose 81 70-99 mg/dl Calcium Level 8.5 8.5-10.1 mg/dl Total Creatine Kinase 319 248 26-192 U/L Creatine Kinase MB 3.8 2.6 0.5-3.6 ng/ml Creatine Kinase MB Ratio 1.2 1.0 0-3.0 Troponin I < 0.015 < 0.015 0-0.045 ng/ml
[2017-11-06] MEDS ORDERED: ASPEC81 PO (11:49)
--- NOTE | 2017-11-06 11:51 | Discharge Instructions ---
Discharge Instructions Date of Service Nov 06, 2017. Admission Reason for Admission: Chest Pain Discharge Discharge Diagnosis / Problem: Chest pain,Negative Stress ECHO Discharge Goals Goal(s): Prevent Disease Progression Activity Recommendations Activity Limitations: resume your previous activity . Instructions / Follow-Up Instructions / Follow-Up Dr Snowden on 11/10/17 at 10:45AM Current Hospital Diet Patient's current hospital diet: AHA Diet (Heart Healthy) Discharge Diet Recommended Diet: AHA Diet (Heart Healthy) Pending Studies Studies pending at discharge: no Medical Emergencies . Who to Call and When: Medical Emergencies: If at any time you feel your situation is an emergency, please call 911 immediately. . Non-Emergent Contact Non-Emergency issues call your: Primary Care Provider . Past History Medical & Surgical History: (1) Chest pain . "Provider Documentation" section prepared by Ana Mathias. . VTE Core Measure Inpt VTE Proph given/why not?: Enoxaparin (Lovenox)SQ, SCD's
[2017-11-06 11:57] VITALS: BP 128/71; PULSE 61; TEMP 36.5; O2SAT 94
[2017-11-06] MEDS ORDERED: LSN5 PO (12:18)
[2017-11-06 12:21] VITALS: BP 107/72; PULSE 75; TEMP 36.6; O2SAT 96
--- NOTE | 2017-11-07 07:56 | Discharge Summary ---
Discharge Summary Date of Service Nov 07, 2017. Discharge Summary Admission Date: Nov 05, 2017 at 11:45 Discharge Date: Nov 06, 2017 Principal Diagnosis: Chest pain,Negative Stress ECHO Secondary Diagnoses/Problems: Please see H&P and Hospital Progress note Consultations: Cardiology Medication Reconciliation New Medications: Aspirin (Aspirin EC Low Dose) 81 Mg Ectab 81 MG PO QAM for 30 Days, #30 Lisinopril (Lisinopril) 5 Mg Tab 5 MG PO QAM for 30 Days, #30 TAB Continued Medications: Albuterol Hfa (Ventolin Hfa) 200 Puffs/15091 Mcg Aers 2-4 PUFFS INH Q6H PRN for Wheezing, #1 INHALER Biotin (Biotin 5000) 5 Mg Cap 1 TAB PO DAILY Fish Oil ([place]-3) 1 Ea Cap 1 CAP PO QAM, CAP Multivitamin (Multivitamin) Tab 1 TAB PO DAILY, TAB Discontinued Medications: Ibuprofen Tab (Advil) 200 Mg Tab 400 MG PO DAILY PRN for Pain, TAB Admission Information HPI (per Admitting provider): This is a 56yo F with a PMH of HTN and asthma who presents with chest pain that began this morning. 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 No radiation down arms or up to jaw. Endorses associated dizziness and lightheadedness and states that she fell to her knees due to the severity of pain. Episode lasted about 8 minutes and then resolved. BP was taken at this time and was elevated at 152/109 per patient. Denies any SOB, diaphoresis, nausea vomiting. Experienced 2 additional episodes over the next few hours. Went to her PCP for evaluation and was given a full dose aspirin and sent to ER for further evaluation. Patient has + family history of heart disease, with her brother dying from an DC at age 48 and her Dad at 52. Patient denies any history of heart disease, MIs, arrhythmias. Is not a smoker. Has been on lisinopril in the past but stopped taking it 2 weeks ago due to symptomatic hypotension in the mornings. Currently endorses a dull frontal headache. Denies lightheadedness, visual changes, chest pain, palpitations, SOB, abd pain, nausea, vomiting, LE swelling. Past Medical/Surgical History Medical Problems: (1) Hypertension Status: Chronic Surgical Problems: (1) Status post tubal ligation Status: Resolved Family History Cancer Diabetes mellitus Heart disease Hypertension Lung disease Social History Smoking Status: Never Smoker Alcohol Use: occasionally (1x/month ) Marital Status: Housing status: lives with significant other Occupational Status: employed Multi-Drug Resistant Organisms History of MDRO: No Allergies Coded Allergies: No Known Allergies (Unverified , 02/13/17) Home Medications Scheduled Biotin (Biotin 5000), 1 TAB PO DAILY Fish Oil ([place]-3), 1 CAP PO QAM Multivitamin (Multivitamin), 1 TAB PO DAILY Scheduled PRN Albuterol Hfa (Ventolin Hfa), 2-4 PUFFS INH Q6H PRN for Wheezing Ibuprofen Tab (Advil), 400 MG PO DAILY PRN for Pain Review of Systems Ten systems reviewed and negative except as noted in the HPI. Physical Ex - H&P Physical Exam Vital Signs Date Time Temp Pulse Resp B/P (MAP) Pulse Ox O2 Delivery O2 Flow Rate FiO2 11/05/17 12:41 55 11/05/17 11:24 59 16 137/91 97 Room Air 11/05/17 09:56 59 20 156/99 99 Room Air 11/05/17 09:28 60 11/05/17 09:27 Room Air 11/05/17 09:25 Room Air 11/05/17 09:15 36.6 65 18 164/91 99 Room Air General Appearance: + mild distress Head: normocephalic, atraumatic Eyes: normal inspection, PERRL, sclerae normal ENT: normal ENT inspection, hearing grossly normal, pharynx normal (moist mucous membranes ) Neck: supple, thyroid normal, trachea midline Respiratory/Chest: chest non-tender, lungs clear, normal breath sounds, no respiratory distress Cardiovascular: no edema, no gallop, no JVD, normal peripheral pulses, + systolic murmur (Faint, LUSB) Abdomen/GI: non tender, soft, no organomegaly Back: normal inspection Extremities/Musculoskelatal: normal inspection, no calf tenderness, no pedal edema Neurologic/Psych: no motor/sensory deficits, alert, normal mood/affect, oriented x 3 Skin: normal color, warm/dry Diagnostics - H&P Diagnostics Laboratory Results Results Past 24 Hours Test 11/05/17 00:00 11/05/17 09:36 11/05/17 10:58 Range/Units White Blood Count 6.36 4.8-10.8 K/uL Red Blood Count 4.92 4.2-5.4 M/uL Hemoglobin 13.1 12.0-16.0 g/dL Hematocrit 39.5 37-47 % Mean Corpuscular Volume 80.3 80-100 fL Mean Corpuscular Hemoglobin 26.6 25-34 pg Mean Corpuscular Hemoglobin Concent 33.2 32-36 g/dl Platelet Count 199 130-400 K/uL Mean Platelet Volume 9.2 7.4-10.4 fL Neutrophils (%) (Auto) 51.5 % Lymphocytes (%) (Auto) 36.9 % Monocytes (%) (Auto) 5.3 % Eosinophils (%) (Auto) 5.8 % Basophils (%) (Auto) 0.5 % Neutrophils # (Auto) 3.27 1.4-6.5 K/uL Lymphocytes # (Auto) 2.35 1.2-3.4 K/uL Monocytes # (Auto) 0.34 0.11-0.59 K/uL Eosinophils # (Auto) 0.37 0-0.5 K/uL Basophils # (Auto) 0.03 0-0.2 K/uL RDW Standard Deviation 39.0 36.4-46.3 fL RDW Coefficient of Variation 13.3 11.5-14.5 % Immature Granulocyte % (Auto) 0.0 % Immature Granulocyte # (Auto) 0.00 0.00-0.02 K/uL Prothrombin Time 10.3 9.0-12.0 SECONDS Prothromb Time International Ratio 1.0 0.9-1.1 Activated Partial Thromboplast Time 26.4 21.0-31.0 SECONDS Partial Thromboplastin Ratio 1.0 Sodium Level 140 136-145 mmol/L Potassium Level 3.5 3.5-5.1 mmol/L Chloride Level 106 98-107 mmol/L Carbon Dioxide Level 27 21-32 mmol/L Anion Gap 6.0 3-11 mmol/L Blood Urea Nitrogen 12 7-18 mg/dl Creatinine 0.80 0.60-1.20 mg/dl Est Creatinine Clear Calc Drug Dose 65.7 ml/min Estimated GFR () 96.2 Estimated GFR (Non- 83.0 BUN/Creatinine Ratio 15.5 10-20 Random Glucose 84 70-99 mg/dl Calcium Level 8.5 8.5-10.1 mg/dl Magnesium Level 2.3 1.8-2.4 mg/dl Total Bilirubin 0.4 0.2-1 mg/dl Aspartate Amino Transf (AST/SGOT) 42 15-37 U/L Alanine Aminotransferase (ALT/SGPT) 39 12-78 U/L Alkaline Phosphatase 74 45-117 U/L Total Creatine Kinase 452 26-192 U/L Creatine Kinase MB 5.5 0.5-3.6 ng/ml Creatine Kinase MB Ratio 1.2 0-3.0 Troponin I < 0.015 0-0.045 ng/ml Total Protein 7.3 6.4-8.2 gm/dl Albumin 3.6 3.4-5.0 gm/dl Globulin 3.7 2.5-4.0 gm/dl Albumin/Globulin Ratio 1.0 0.9-2 Lipase 156 73-393 U/L D-Dimer 630 0-500 ug/L FEU Urine Color YELLOW Urine Appearance CLEAR CLEAR Urine pH 5.5 4.5-7.5 Urine Specific [place] 1.014 1.000-1.030 Urine Protein NEG NEG Urine Glucose (UA) NEG NEG Urine Ketones NEG NEG Urine Occult Blood NEG NEG Urine Nitrite NEG NEG Urine Bilirubin NEG NEG Urine Urobilinogen NEG NEG Urine Leukocyte Esterase NEG NEG Diagnostic Radiology CXR: IMPRESSION: Mild bibasilar interstitial thickening. This is nonspecific but favors chronic change. No focal lung consolidations to suggest pneumonia. Chest/thorax CTA: IMPRESSION: 1. No evidence of acute pulmonary embolism 2. No evidence of focal pulmonary consolidation. EKG Sinus bradycardia Otherwise normal ECG No change from prior EKG Impression - H&P Impression Assessment and Plan This is a 56yo F with a PMH of HTN and asthma who presents with chest pain that began this morning. Chest pain: -R/o ACS; risk factors include HTN, + family h/o HD -Received full dose aspirin at PCP's office [employer] -Initial troponin negative -Initial CK, CKMB elevated. Initiated IVFs -EKG-no ischemic changes. CXR-wnl -D dimer elevated, CTA without PE -Trend serial cardiac enzymes -Check echo, repeat EKG in am -Consult cardiology -Monitor on tele HTN: -BP reportedly elevated during episodes of CP this morning -Normotensive now -Monitor Asthma: -Stable -Home inhaler PRN DVT Ppx: Lovenox Code status: FULL PCP: Isi Dispo: Plan to return home once medically stable Patient seen in collaboration with Dr. Mendieta. Please see addendum. ADDENDUM: This is a 56 year old female with a PMH of HTN and asthma presents with substernal chest pain at work today. 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 States that at 5:45AM, she developed a crushing substernal chest pain that almost brought her to her knees. This lasted about 6-8 minutes and then subsided. She went on to see another patient, but the chest pain recurred, but this time it was worse. She took one baby aspirin tablet at the nursing facility. She refused to go to the ER, went to Dr. Snowden's office instead. At Dr. Snowden's office, she received a full dose aspirin, and her chest pain completely subsided at that time. An EKG was done, with no acute findings - but due to family history of early cardiac , she was told to come to the ED. She had an elevated d-dimer - CTA was done - no PE noted CXR no acute findings no elevation of initial cardiac enzymes EKG - sinus bradycardia Plan: Chest Pain r/o ACS trend cardiac enzymes check an echo monitor in tele aspirin 81mg she does "cardio" at her gym and runs 30 minutes at a time on a treadmill with no reproducible chest pain cardiology consulted for further input HTN had been prescribed Lisinopril, but not taking it the past two weeks due to low BP blood pressure here >150/90 given 5mg of Lisinopril now, continue daily Elevated CPK likely due to weight lifting at her gym will give gentle hydration and trend CPK DVT ppx Lovenox FULL CODE Level of Care Telemetry Resuscitation Status FULL RESUSCITATION VTE Prophylaxis VTE Risk Assessment Done? Y/N: Yes Risk Level: Low Given or contraindicated: Enoxaparin (Lovenox)SQ, SCD's Physical Exam (per Admitting): General Appearance: + mild distress Head: normocephalic, atraumatic Eyes: normal inspection, PERRL, sclerae normal ENT: normal ENT inspection, hearing grossly normal, pharynx normal (moist mucous membranes ) Neck: supple, thyroid normal, trachea midline Respiratory/Chest: chest non-tender, lungs clear, normal breath sounds, no respiratory distress Cardiovascular: no edema, no gallop, no JVD, normal peripheral pulses, + systolic murmur (Faint, LUSB) Abdomen/GI: non tender, soft, no organomegaly Back: normal inspection Extremities/Musculoskelatal: normal inspection, no calf tenderness, no pedal edema Neurologic/Psych: no motor/sensory deficits, alert, normal mood/affect, oriented x 3 Skin: normal color, warm/dry Hospital Course This is a 56yo F with a PMH of HTN and asthma who presents with chest pain that began this morning. Chest pain: -R/o ACS; risk factors include HTN, + family h/o HD -Received full dose aspirin at PCP's office [employer] -Serial Troponins were negative -Minimal elevation of Initial CK, CKMB and normalized subsequently -EKG-no ischemic changes but has J point elevation . CXR-wnl -D dimer elevated, CTA without PE -Consult cardiology-appreciate Input Stress ECHO-negative Resting ECHO:: The left ventricle is normal in size. * There is normal left ventricular wall thickness. * The left ventricular wall motion is normal. * Left ventricular systolic function is normal. * Ejection Fraction = 55-60%. * A bicuspid aortic valve cannot be excluded. * Aortic valve sclerosis mild, without significant aortic valvular stenosis. * The anterior mitral valve leaflet is mildy redundant. * There is trace mitral regurgitation. * There is mild tricuspid regurgitation. * Doppler findings do not suggest pulmonary hypertension. * The aortic root is normal size. Stress ECHO::The left ventricle is normal in size. * There is normal left ventricular wall thickness. * Left ventricular systolic function is normal. * Resting wall motion: Normal. Stress wall motion: Appropriate increase in Left ventricular systolic function and decrease in cavity size. No stress induced segmental wall motion abnormalities. Noncardiac pain GI W/U Suggested if symptoms persists HTN: -BP reportedly elevated during episodes of CP this morning -Normotensive now -remains normotensive Asthma: -Stable -Home inhaler PRN DVT Ppx: Lovenox Code status: FULL PCP: Isi Dispo: Plan to return home once medically stable Discharge home today Total time spent on discharge = 35 minutes This includes examination of the patient, discharge planning, medication reconciliation, and communication with other providers. Discharge Instructions Date of Service Nov 06, 2017. Admission Reason for Admission: Chest Pain Discharge Discharge Diagnosis / Problem: Chest pain,Negative Stress ECHO Discharge Goals Goal(s): Prevent Disease Progression Activity Recommendations Activity Limitations: resume your previous activity . Instructions / Follow-Up Instructions / Follow-Up Dr Snowden on 11/10/17 at 10:45AM Current Hospital Diet Patient's current hospital diet: AHA Diet (Heart Healthy) Discharge Diet Recommended Diet: AHA Diet (Heart Healthy) Pending Studies Studies pending at discharge: no Medical Emergencies . Who to Call and When: Medical Emergencies: If at any time you feel your situation is an emergency, please call 911 immediately. . Non-Emergent Contact Non-Emergency issues call your: Primary Care Provider . Past History Medical & Surgical History: (1) Chest pain . "Provider Documentation" section prepared by Ana Mathias. . VTE Core Measure Inpt VTE Proph given/why not?: Enoxaparin (Lovenox)SQ, SCD's <Electronically signed by Ana Mathias M.D.> Signed: 11/06/17 [id number] Additional Copies To Rah Snowden III, M.D.
[2017-11-07] MEDS ORDERED: MULTIVITAMIN TAB PO SCH (09:00)
[2017-11-07] MEDS ORDERED: ASPIRIN 81 MG ECTAB PO SCH (09:00)
== END 2017-11-06 12:25 | disposition home or self-care (01) ==
LOC: C.EDB 09:12 → C.MED 11:45 → ENRESERV 12:38
PROVIDERS: ADMIT Family Medicine; ATTEND Internal Medicine
DX: R07.9 Chest pain, unspecified (principal); I10 Essential (primary) hypertension; J45.909 Unspecified asthma, uncomplicated; R74.8 Abnormal levels of other serum enzymes; Z83.3 Family history of diabetes mellitus; Z82.49 Family history of ischemic heart disease and other diseases of the circulatory system; Z83.6 Family history of other diseases of the respiratory system; Z80.9 Family history of malignant neoplasm, unspecified; Z79.899 Other long term (current) drug therapy

== ENCOUNTER → 2018-07-07 | Outpatient (CLI) | payer BC ==
[~2018-07-07] MED LIST changes: +ASPI-320 PO; -BIOT1CAP8 PO; +BIOTCAP2 PO; -IBUP-103 PO; -LISI-461 PO; +LISI-730 PO; -TAMS0.4C38 PO
--- NOTE | 2018-07-08 13:51 | MAMMOGRAPHY REPORT ---
BILATERAL DIGITAL SCREENING MAMMOGRAM TOMOSYNTHESIS WITH CAD: 07/07/2018 CLINICAL HISTORY: Routine screening. Patient has no complaints. TECHNIQUE: The study was acquired using full field digital technology and interpreted from soft copy. Breast tomosynthesis in addition to standard 2D mammography was performed. Current study was also ev aluated with a Computer Aided Detection (CAD) system. COMPARISON: Comparison is made to exams dated: 07/04/2017 mammogram, 06/18/2016 mammogram, 06/15/2015 m ammogram, 06/13/2014 mammogram, 06/10/2013 mammogram, and 06/09/2012 mammogram - [facility] enter. BREAST COMPOSITION: The tissue of both breasts is heterogeneously dense, which may obscure small mass es. FINDINGS: The parenchymal pattern is unchanged. No developing mass, architectural distortion or cluster of susp icious microcalcifications is seen in either breast. IMPRESSION: ACR BI-RADS CATEGORY 2: BENIGN There is no mammographic evidence of malignancy. A 1 year screening mammogram is recommended.( [id number]) The patient will receive written notification of the results. Some breast cancers are not detected with mammography. A negative mammographic report should not juliana y biopsy if a clinically suggestive mass is present. Agustina Patiño M.D. ay/:07/07/2018 15:38:46 Digital Publishing Specialist: RT Julien(Romaine)(M), [facility] letter sent: Normal 1/2 BI-RADS Code: ACR BI-RADS Category 2: Benign
== END | disposition home or self-care (01) ==
LOC: C.MAMM 13:02
PROVIDERS: ATTEND Family Medicine
DX: Z12.31 Encounter for screening mammogram for malignant neoplasm of breast (principal)